=== PATIENT | male | born 1965 | race Caucasian/White ===

== ENCOUNTER 2018-09-12 04:04 | Emergency (ER) | payer BC, SELFPAY ==
[2018-09-12 04:09] VITALS: BP 154/94; PULSE 75; RESP 16; TEMP 36.5; O2SAT 97
[2018-09-12] MEDS: oxyCODONE 5 MG TAB PO ×2 (04:37→06:29)
--- NOTE | 2018-09-12 04:40 | W.ED.GENAD ---
Discharge Plan Disposition Patient Disposition: HOME Condition: Stable Discharge Details Chief Complaint: Orthopedic Clinical Impression: Left knee sprain, Effusion of left knee Primary Care Provider: Jeevan Vidal ED Provider: Abbey Richter Home Meds and New Rx's Prescriptions: New oxycodone 5 mg tablet 5 mg PO Q6H PRN (Reason: pain) Qty: 7 RF: 0 Continued epinephrine 0.3 mg/0.3 mL auto-injector 0.3 mg IM DAILY PRN (Reason: anaphylaxis) RF: 0 meclizine 12.5 mg tablet 12.5 - 25 mg PO Q6H PRN RF: 0 terbinafine HCl 250 mg tablet 250 mg PO DAILY RF: 0 amlodipine 10 mg tablet 10 mg PO DAILY Qty: 90 RF: 3 cetirizine 10 mg tablet 10 mg PO DAILY Qty: 90 RF: 3 losartan 100 mg tablet 100 mg PO DAILY Qty: 90 RF: 3 omeprazole magnesium 20 mg capsule,delayed release(DR/EC) 20 mg PO DAILY Qty: 90 RF: 3 sertraline 50 mg tablet 50 mg PO DAILY Qty: 90 RF: 3 tamsulosin 0.4 mg capsule 0.4 mg PO DAILY Qty: 90 RF: 3 Discharge Instructions Instructions: Knee Sprain (ED) Additional Instructions: Rest, ice, elevate left knee as much as possible. Wear an Teto wrap or knee brace and use crutches for ambulation until you are able to bear weight as tolerated. Call orthopedics today to schedule follow-up appointment for reevaluation. Return immediately to the emergency department any worsening or new concerning symptoms fever, worsening pain, redness or swelling. Referrals: Greg Sierra MD [ [facility] STAFF PHYSICIAN] - Discharge Data Discharge Physician: Abbey Richter Medical Decision Making 53-year-old male presents with left knee pain and swelling for the past 5 days, worse since last night. Denies any known specific injury but states he was fishing and doing squats in the gym recently. Blood pressure mildly hypertensive. Afebrile. There is no evidence of cellulitis to the knee. His left knee does appear warm, tender with flexion past 40 degrees, and has moderate edema to anterior knee. No ligamentous instability. Neurovascularly intact. No calf tenderness. Patient is a daily drinker. Differential diagnosis includes gout, arthritis, sprain. No fever or redness so does not appear c/w septic arthritis. Will obtain a left knee x-ray, and check CBC, ESR, CRP and uric acid level. Patient cannot take any NSAIDs due to anaphylaxis. Will give a dose of oxycodone. 0530 --labs and imaging reviewed. Normal white blood cell count, ESR, uric acid. CRP 3.24. Knee x-ray notes soft tissue swelling and joint effusion suprapatellar and femoral tibial joint compartments. As patient does not have any lab or exam findings consistent with septic arthritis or gout, will do an arthrocentesis for treatment purposes to help with pain and send for fluid analysis. Drained approximately 13 cc of serous fluid which may be been mixed with blood due to proximity to vessels. Patient admitted to some improvement of pain and mobility of knee after knee aspiration. Patient given Teto wrap and crutches and instructed to [id number], rest, ice, elevate. He is instructed to call orthopedics today to schedule follow-up appointment for reevaluation and to return here immediately with any signs of fever, worsening pain, redness or swelling. Medical Records Medical records reviewed: Yes I reviewed the patient's medical records. Imaging Data Radiologic Study: Radiologist's impression: XR Left Knee, 4 or more Views EXAM DATE/TIME: 09/12/2018 4:30 AM FINDINGS: Bones/joints: Bone mineralization is age-appropriate. There is no evidence of fracture. No evidence of dislocation. There are probable joint effusions at the suprapatellar and femoral tibial joint compartments. The joint spaces are adequately preserved; no significant degenerative narrowing and no bony erosion seen. Soft tissues: No radiopaque foreign body present. There is soft tissue swelling present. IMPRESSION: 1. No acute osseous abnormality. 2. Soft tissue swelling. 3. There are probable joint effusions at the suprapatellar and femoral tibial joint compartments. Lab Data Lab results reviewed: Yes I reviewed the patient's lab results. Laboratory Tests Range/Units 09/12/18 09/12/18 09/12/18 04:40 04:40 04:40 WBC (4.4-10.8) k/cumm RBC (4.50-6.00) m/cumm Hgb (13.5-17.5) g/dL Hct (40.0-50.0) % MCV (80-95) fL MCH (27.0-33.0) pg MCHC (32.0-36.0) g/dL RDW (11.8-14.1) % Plt Count (130-400) x1000/uL MPV (8.0-11.0) fL Immature Gran % Neutrophils % Lymphocytes % Monocytes % Eosinophils % Basophils % Absolute Neutrophils (1.2-6.7) k/cumm Absolute Lymphocytes (1.2-3.4) k/cumm Absolute Monocytes (0.11-0.7) k/cumm Absolute Eosinophils (0.0-0.7) k/cumm Absolute Basophils (0.0-0.2) k/cumm ESR (1-20) MM/HR 13 Sodium (136-145) mmol/L Potassium (3.5-5.1) mmol/L Chloride (98-107) mmol/L Carbon Dioxide (21.0-32.0) mmol/L Anion Gap (3-11) mmol/L BUN (7-18) mg/dL Creatinine (0.70-1.30) mg/dL Estimated GFR/1.73 m2 (mL/min/1.73m2) Glucose (70-100) mg/dL Uric Acid (3.5-7.2) mg/dL 4.8 Calcium (8.5-10.1) mg/dL C-Reactive Protein (0.0-0.3) mg/dL 3.24 H Range/Units 09/12/18 09/12/18 04:40 04:40 WBC (4.4-10.8) k/cumm 7.15 RBC (4.50-6.00) m/cumm 4.70 Hgb (13.5-17.5) g/dL 14.6 Hct (40.0-50.0) % 43.7 MCV (80-95) fL 93.0 MCH (27.0-33.0) pg 31.1 MCHC (32.0-36.0) g/dL 33.4 RDW (11.8-14.1) % 13.9 Plt Count (130-400) x1000/uL 259 MPV (8.0-11.0) fL 9.9 Immature Gran % 0.1 Neutrophils % 65.4 Lymphocytes % 22.7 Monocytes % 9.0 Eosinophils % 2.4 Basophils % 0.4 Absolute Neutrophils (1.2-6.7) k/cumm 4.68 Absolute Lymphocytes (1.2-3.4) k/cumm 1.62 Absolute Monocytes (0.11-0.7) k/cumm 0.64 Absolute Eosinophils (0.0-0.7) k/cumm 0.17 Absolute Basophils (0.0-0.2) k/cumm 0.03 ESR (1-20) MM/HR Sodium (136-145) mmol/L 140 Potassium (3.5-5.1) mmol/L 4.0 Chloride (98-107) mmol/L 105 Carbon Dioxide (21.0-32.0) mmol/L 27.0 Anion Gap (3-11) mmol/L 8.0 BUN (7-18) mg/dL 16 Creatinine (0.70-1.30) mg/dL 1.25 Estimated GFR/1.73 m2 (mL/min/1.73m2) >= 60.00 Glucose (70-100) mg/dL 123 H Uric Acid (3.5-7.2) mg/dL Calcium (8.5-10.1) mg/dL 8.6 C-Reactive Protein (0.0-0.3) mg/dL HPI General Mode of arrival: wheelchair. Date/Time Provider Initiated Documentation: 09/12/18 04:18. Limitations to Documentation: no limitations. Information obtained by: patient. HPI Narrative: Patient is a 53-year-old male presents with left knee pain for the past 5 days, worse since last night. Patient states he has been unable to sleep due to the pain. He denies any known specific injury but states he was fishing earlier in the week, and has been doing squats at the gym. He also has a daily alcohol drinker and states he drank a lot last week. He denies any known fever. Related Data Home Medications Medication Instructions Recorded Confirmed epinephrine 0.3 mg/0.3 mL 0.3 mg IM DAILY PRN each 03/19/18 09/12/18 injection, auto-injector meclizine 12.5 mg tablet 12.5 - 25 mg PO Q6H PRN tab 03/19/18 09/12/18 terbinafine HCl 250 mg tablet 250 mg PO DAILY 03/19/18 09/12/18 amlodipine 10 mg tablet 10 mg PO DAILY #90 tab 07/15/18 09/12/18 cetirizine 10 mg tablet 10 mg PO DAILY #90 tab 07/15/18 09/12/18 losartan 100 mg tablet 100 mg PO DAILY #90 tab 07/15/18 09/12/18 omeprazole magnesium 20 mg 20 mg PO DAILY #90 cap 07/15/18 09/12/18 capsule,delayed release sertraline 50 mg tablet 50 mg PO DAILY #90 tab 07/15/18 09/12/18 tamsulosin 0.4 mg capsule 0.4 mg PO DAILY #90 cap 07/15/18 09/12/18 oxycodone 5 mg PO Q6H PRN #7 tab 09/12/18 Previous Rx's Medication Instructions Recorded amlodipine 10 mg tablet 10 mg PO DAILY #90 tab 07/15/18 cetirizine 10 mg tablet 10 mg PO DAILY #90 tab 07/15/18 losartan 100 mg tablet 100 mg PO DAILY #90 tab 07/15/18 omeprazole magnesium 20 mg 20 mg PO DAILY #90 cap 07/15/18 capsule,delayed release sertraline 50 mg tablet 50 mg PO DAILY #90 tab 07/15/18 tamsulosin 0.4 mg capsule 0.4 mg PO DAILY #90 cap 07/15/18 oxycodone 5 mg PO Q6H PRN #7 tab 09/12/18 Allergies Allergy/AdvReac Type Severity Reaction Status Date / Time amoxicillin Allergy Severe Anaphylaxsi Unverified 09/12/18 04:12 s ibuprofen Allergy Severe Anaphylaxsi Unverified 09/12/18 04:12 s naproxen Allergy Severe Anaphylaxsi Unverified 09/12/18 04:12 s Penicillins Allergy Severe Anaphylaxsi Unverified 09/12/18 04:12 s venom-honey bee Allergy Severe Anaphylaxsi Unverified 09/12/18 04:12 s clavulanic acid Allergy Mild RASH Unverified 09/12/18 04:12 morphine AdvReac Unknown Unverified 09/12/18 04:12 General Stated Complaint: Orthopedic CRESCENCIO: 3 Review of Systems Review of Systems All systems reviewed & are unremarkable except as noted in HPI and below Constitutional Reports as per HPI, Denies chills and Denies fever(s) Eyes Denies blurry vision ENT Denies dizziness, Denies sore throat and Denies throat swelling Cardiovascular Denies chest pain and Denies dyspnea Respiratory Denies cough and Denies dyspnea Gastrointestinal Denies abdominal pain, Denies diarrhea and Denies vomiting Genitourinary Denies hematuria and Denies dysuria Musculoskeletal Denies back pain and Denies numbness Integumentary/Breasts Denies lesions and Denies rash Neurologic Denies dizziness, Denies focal weakness and Denies numbness Allergic/Immunologic Denies throat swelling [facility] Medical History Alzheimer's dementia (Chronic) Depression (Chronic) GERD (gastroesophageal reflux disease) (Chronic) HTN (hypertension) (Chronic) Surgical History Colonoscopy - MAC (01/20/17) EGD - IV Sedation (01/24/13) EGD - IV Sedation (06/16/16) Nasal septoplasty (11/05/14) Turbinoplasty, Inferior (Bilateral) (11/05/14) Family History Mother Essential hypertension Depression Father Essential hypertension Personal history of malignant neoplasm Heart disease Sister Essential hypertension Heart disease Grandfather Essential hypertension Hyperlipidemia Grandfather Personal history of malignant neoplasm Hyperlipidemia Grandmother Heart disease Grandmother Heart disease Stroke Sister Essential hypertension Hyperlipidemia Son No problems noted. Daughter No problems noted. Social History household members: spouse number of children: 2 Smoking and Tabacco status: Never alcohol intake: current alcohol intake frequency: 0-2 drinks per day substance use type: marijuana Exam Const General: cooperative, healthy appearing and no acute distress HENMT Head: normal to inspection Mouth: oral mucosae normal Eyes General: appearance normal, both eyes and all related structures Neck Neck: normal visual inspection Resp Effort & Inspection: normal respiratory effort and able to speak in complete sentences Cardio Rate: regular rate Skin General skin exam: no rashes or lesions noted Neuro General: alert, awake and oriented x3 Motor: muscle tone normal throughout Extrem Left lower extremity: hip/thigh Details: normal ROM and knee Details: tenderness Location: of the patella, swelling Location: of the patella, abnormal ROM Details: pain with active ROM Details: with flexion and pain with passive ROM Details: with flexion, knee ligament exam normal, Candy's Test Details: negative medially and laterally and warmth Location: anteriorly; no ecchymosis, no crepitus and no foreign bodies Psych Appearance: grossly normal Affect: normal affect Course Vital Signs Temperature 97.7 F 09/12/18 04:09 Pulse 75 09/12/18 04:09 Respiratory Rate 16 09/12/18 04:09 Blood Pressure 154/94 H 09/12/18 04:09 Pulse Oximetry 97 09/12/18 04:09 Temperature 97.7 F 09/12/18 04:09 Temperature Source Temporal Artery Scan 09/12/18 04:09 Pulse 75 09/12/18 04:09 Respiratory Rate 16 09/12/18 04:09 Respiratory Effort Non-Labored 09/12/18 04:14 Blood Pressure 154/94 H 09/12/18 04:09 Blood Pressure Position Supine 09/12/18 04:09 Pulse Oximetry 97 09/12/18 04:09 Oxygen Delivery Method Room Air 09/12/18 04:09 Oxygen Flow Rate 0 09/12/18 04:09 Pain Level 8 09/12/18 04:37
[2018-09-12 04:51] LABS: Abs Immature Grans 0.01 k/cumm (0.0-0.09); Absolute Basophil Count 0.03 k/cumm (0.0-0.2); Absolute Eosinophil Count 0.17 k/cumm (0.0-0.7); Absolute Lymphocyte Count 1.62 k/cumm (1.2-3.4); Absolute Monocyte Count 0.64 k/cumm (0.11-0.7); Absolute Neutrophil Count 4.68 k/cumm (1.2-6.7); Basophils % 0.4; Eosinophils % 2.4; HCT 43.7 % (40.0-50.0); HGB 14.6 g/dL (13.5-17.5); Immature Grans % 0.1; Lymphocytes % 22.7; Mean Corp. HGB Concentration 33.4 g/dL (32.0-36.0); Mean Corpuscular Hemoglobin 31.1 pg (27.0-33.0); Mean Platelet Volume 9.9 fL (8.0-11.0); Neutrophils % 65.4; Platelet Count 259 x1000/uL (130-400); RBC Distribution Width 13.9 % (11.8-14.1); White Blood Cell Count 7.15 k/cumm (4.4-10.8)
[2018-09-12 04:59] LABS: C-Reactive Protein 3.24 mg/dL (0.0-0.3)
[2018-09-12 05:00] LABS: Uric Acid 4.8 mg/dL (3.5-7.2)
[2018-09-12 05:06] LABS: BUN 16 mg/dL (7-18); CREATININE 1.25 mg/dL (0.70-1.30); Calcium 8.6 mg/dL (8.5-10.1); Chloride 105 mmol/L (98-107); Glucose 123 mg/dL (70-100); Sodium 140 mmol/L (136-145)
--- NOTE | 2018-09-12 05:15 | DI.RAD_ITS ---
SYMPTOMS/DIAGNOSIS: LEFT KNEE SWELLING, ? EFFUSION/FRACTURE LEFT KNEE: A joint effusion is seen. No fracture is visible. There is anterior soft tissue swelling. The joint spaces are well maintained. IMPRESSION: Anterior soft tissue swelling and joint effusion.
[2018-09-12 05:21] LABS: ESR 13 MM/HR (1-20)
--- NOTE | 2018-09-12 05:35 | DI.VRAD_ITS ---
EXAM: XR Left Knee, 4 or more Views EXAM DATE/TIME: 09/12/2018 4:30 AM CLINICAL HISTORY: 53 years old, male; Pain; Knee; Left; Patient HX: Knee pain, unable to bend or lift knee. No specific trauma. Injured this knee before but no prior surgery TECHNIQUE: XR Left knee 4 or more views. COMPARISON: No relevant prior studies available. FINDINGS: Bones/joints: Bone mineralization is age-appropriate. There is no evidence of fracture. No evidence of dislocation. There are probable joint effusions at the suprapatellar and femoral tibial joint compartments. The joint spaces are adequately preserved; no significant degenerative narrowing and no bony erosion seen. Soft tissues: No radiopaque foreign body present. There is soft tissue swelling present. IMPRESSION: 1. No acute osseous abnormality. 2. Soft tissue swelling. 3. There are probable joint effusions at the suprapatellar and femoral tibial joint compartments. Dictated and Authenticated by: Logan Keller MD. Ordering:ADARSH Potter MD
[2018-09-12 06:49] VITALS: PULSE 70; RESP 16; TEMP 36.5; O2SAT 97
== END 2018-09-12 06:40 | disposition home or self-care (01) ==
PROVIDERS: Emergency Provider Physician Assistant; PCP Family Medicine
DX: S83.92XA Sprain of unspecified site of left knee, initial encounter (principal); M25.462 Effusion, left knee; X58.XXXA Exposure to other specified factors, initial encounter
CPT/HCPCS: 36415; 80048; 85652; 99284; 73564; 84550; 85025; 86140; 87070; 87205; E0114

== ENCOUNTER 2018-09-28 15:21 | Outpatient (CLI) | payer BC, SELFPAY ==
--- NOTE | 2018-09-28 14:49 | DI.RAD_ITS ---
SYMPTOMS/DIAGNOSIS: RIGHT HIP PAIN RIGHT HIP AND PELVIS: Comparison CT scan is 09/15/16. There is again seen marked narrowing of the superior joint space. There is mild subchondral sclerosis in the acetabulum. Mild spurring is seen at the femoral head. Posttraumatic changes are seen in the lesser trochanter. No acute fracture or dislocation is seen. IMPRESSION: Moderate degenerative changes of the right hip.
== END 2018-09-28 15:41 ==
PROVIDERS: PCP Family Medicine; Visit Provider Physician Assistant
DX: M25.551 Pain in right hip (principal); M16.11 Unilateral primary osteoarthritis, right hip
CPT/HCPCS: 73502

== ENCOUNTER 2018-10-06 00:26 | Outpatient (CLI) | payer BC, SELFPAY ==
--- NOTE | 2018-10-06 07:19 | DI.RAD_ITS ---
SYMPTOMS/DIAGNOSIS: PRIMARY OA RT HIP, M16.11 RIGHT HIP INJECTION: Fluoroscopy Time: 4 sec Under fluoroscopic guidance, Dr. Sierra positioned a needle in the right hip and carried out a joint injection. Please see the procedure report for further information.
[2018-10-06] MEDS: Bupivacaine 0.5% Pres-Free 10 ML VIAL 6 ML IJ (08:28)
[2018-10-06] MEDS: Omnipaque 300 MG/ML 10 ML BTL IJ (08:28)
[2018-10-06] MEDS: methylPREDNISolone ACETATE 80 MG/ML VIAL IM (08:29)
--- NOTE | 2018-10-06 09:49 | W.PROCNOTE ---
Date of service: 10/06/18 Time of Service: 09:49 Procedure Note Date of procedure: 10/06/18 Procedure: Right Hip Injection with Fluoroscopic Guidance Surgeon/Proceduralist/Physician: Greg Sierra Procedure Diagnosis: Right Hip Osteoarthritis Procedure Indications: Gopi has had persistent pain of the RIGHT hip and groin. Noninvasive measures have been tried. To serve as both diagnostic and therapeutic, an injection under fluoroscopy was recommended. I had discussed the risks of the procedure and the patient elected to proceed. Procedure Description: Gopi was greeted in the flouroscopy room. The correct side was identified and the consent was reviewed with the patient and signed. The patient was then placed in the supine position on the fluoroscopy table. The RIGHT hip was then prepped with Chloraprep. The anterolateral injection starting point was identiifed by bony landmarks and fluoroscopy. The skin and soft tissue in the tract of the injection was anesthetized with 1% Lidocaine. A spinal needle was then inserted deep into the hip joint at the level of the lateral femoral neck under fluoroscopic guidance. A small amount of Omnipaque solution was injected to confirm intraarticular placement. Once confirmed, the hip was injected with 6cc of 0.5% Bupivicaine and 80mg of Depo-Medrol. A bandaid was placed on the injection site. The patient tolerated the procedure well and noted improvement in pre-injection pain.
== END 2018-10-06 00:46 ==
PROVIDERS: PCP Family Medicine; Visit Provider Student in an Organized Health Care Education/Training Program
DX: M25.551 Pain in right hip (principal); M16.11 Unilateral primary osteoarthritis, right hip
CPT/HCPCS: 20610; 77002; J1040

== ENCOUNTER 2019-02-16 01:19 | Outpatient (CLI) | payer BC, SELFPAY ==
--- NOTE | 2019-02-16 07:24 | DI.RAD_ITS ---
SYMPTOM/DIAGNOSIS: RT HIP INJECTIO, PRIMARY OA RT HIP, M16.11 FLUOROSCOPY: Fluoroscopy Time: 8.3 seconds Fluoroscopy was utilized by Dr. Sierra during right hip joint injection. Hard copy shows intra-articular injection of the right hip joint.
--- NOTE | 2019-02-16 10:23 | W.PROCNOTE ---
Date of service: 02/16/19 Time of Service: 10:23 Procedure Note Date of procedure: 02/16/19 Procedure: Right Hip Injection with Fluoroscopic Guidance Surgeon/Proceduralist/Physician: Greg Sierra Procedure Diagnosis: Right Hip Osteoarthritis Procedure Indications: Gopi has had persistent pain of the RIGHT hip and groin. Noninvasive measures have been tried. To serve as both diagnostic and therapeutic, an injection under fluoroscopy was recommended. I had discussed the risks of the procedure and the patient elected to proceed. Procedure Description: Gopi was greeted in the flouroscopy room. The correct side was identified and the consent was reviewed with the patient and signed. The patient was then placed in the supine position on the fluoroscopy table. The RIGHT hip was then prepped with Chloraprep. The anterolateral injection starting point was identiifed by bony landmarks and fluoroscopy. The skin and soft tissue in the tract of the injection was anesthetized with 1% Lidocaine. A spinal needle was then inserted deep into the hip joint at the level of the lateral femoral neck under fluoroscopic guidance. A small amount of Omnipaque solution was injected to confirm intraarticular placement. Once confirmed, the hip was injected with 6cc of 0.5% Bupivicaine and 80mg of Depo-Medrol. A bandaid was placed on the injection site. The patient tolerated the procedure well and noted improvement in pre-injection pain.
[2019-02-16] MEDS: Bupivacaine 0.5% Pres-Free 10 ML VIAL 6 ML IJ (10:30)
[2019-02-16] MEDS: methylPREDNISolone ACETATE 80 MG/ML VIAL IM (10:31)
== END 2019-02-16 01:39 ==
PROVIDERS: PCP Family Medicine; Visit Provider Student in an Organized Health Care Education/Training Program
DX: M16.11 Unilateral primary osteoarthritis, right hip (principal); M25.551 Pain in right hip
CPT/HCPCS: 20610; 77002; J1040

== ENCOUNTER 2019-04-18 12:56 | Outpatient (CLI) | payer BC, SELFPAY ==
--- NOTE | 2019-04-18 14:04 | W.PREOPHP ---
Date of service: 04/18/19 Assessment and Plan Assessment and plan (1) Primary osteoarthritis of right hip: Status: Chronic Assessment and plan: Right total hip replacement. Details of surgery were discussed with patient as well as risks and pertinent anatomy. All questions were answered. History of Present Illness History of Present Illness Chief Complaint: Right hip pain Narrative: Gopi is a 53-year-old male who comes in today for a preop H&P for a right total hip replacement. He has been dealing with right hip pain for quite some time, does not very good job of compensating for pain. He states that he has trouble going up stairs especially, but also walking on uneven ground. He states his pain is very predictable with every step that he takes going upstairs. He has had x-rays done which show severe arthritis of the right hip with a complete loss of joint space and bone spurs throughout. He has had injections performed in his right hip which gave him almost complete relief of his pain, but they have only lasted a couple of months. His most recent injection was 2 months ago, and just now his pain is starting to return. Dr. Sierra does offer a right total hip replacement, and at this point Gopi is ready to proceed. Pertinent Surgical Information Gopi had an issue with anesthesia previously because of his early onset dementia. He woke up with severe confusion and memory loss after recent anesthesia. He would like to move forward with a spinal and light sedation in order to try to prevent this at this time. Gopi has anaphylactic reaction to NSAIDs, so may not be a good candidate for aspirin as DVT prevention. He has an anaphylactic reaction to penicillin as well, but he will receive Ancef with a test dose in the OR. Patient denies history of CVA, VA, angina, asthma, COPD, renal or liver disorders, hepatitis, bleeding disorders, diabetes, immune or thyroid disorders. No complications from anesthesia. Review of Systems Constitutional Constitutional: Denies fever(s) ENT Ears, Nose, Mouth, and Throat: Denies dizziness and Denies sore throat Cardiovascular Cardiovascular: Denies chest pain, Denies palpitations and Denies dyspnea Respiratory Respiratory: Denies cough and Denies dyspnea Gastrointestinal Gastrointestinal: Reports abdominal pain (Infrequently usually after eating or drinking alcohol in RUQ), Denies melena, Denies hematochezia, Denies diarrhea, Denies nausea and Denies vomiting Genitourinary Genitourinary: Denies hematuria and Denies dysuria Neurologic Neurologic: Denies dizziness Endocrine Endocrine: Denies palpitations [facility] Medical History (Updated 04/18/19 @ 14:17 by POLLO Vang) Alzheimer's dementia (Chronic) Depression (Chronic) GERD (gastroesophageal reflux disease) (Chronic) History of anesthesia complications (Acute) Memory loss, combative when waking up during colonoscopy HTN (hypertension) (Chronic) Surgical History Colonoscopy - MAC (01/20/17) EGD - IV Sedation (01/24/13) EGD - IV Sedation (06/16/16) Nasal septoplasty (11/05/14) Dr. Milton @ [facility] Turbinoplasty, Inferior (Bilateral) (11/05/14) Dr. Milton @ [facility] Social History (Updated 04/18/19 @ 14:08 by POLLO Vang) Smoking/Tobacco Use Status: Never Smokeless tobacco user: chewing tobacco Quit status: has quit before Alcohol Intake: current Alcohol Intake frequency: 3 or more drinks per day Alcohol type: beer Details: Previously 4-5 daily. Now no during the week, but has about 12 on weekends Drug use: Daily Substance use type: marijuana Household members: spouse Number of Children: 2 Do you feel safe in your relationship?: Yes Meds Home Medications and Allergies Home Medications Medication Instructions Recorded Confirmed Type epinephrine 0.3 mg/0.3 mL 0.3 mg IM DAILY PRN each 03/19/18 04/18/19 History injection, auto-injector meclizine 12.5 mg tablet 12.5 - 25 mg PO Q6H PRN tab 03/19/18 04/18/19 History amlodipine 10 mg tablet 10 mg PO DAILY #90 tab 07/15/18 04/18/19 Rx cetirizine 10 mg tablet 10 mg PO DAILY #90 tab 07/15/18 04/18/19 Rx losartan 100 mg tablet 100 mg PO DAILY #90 tab 07/15/18 04/18/19 Rx omeprazole magnesium 20 mg 20 mg PO DAILY #90 cap 07/15/18 04/18/19 Rx capsule,delayed release sertraline 50 mg tablet 50 mg PO DAILY #90 tab 07/15/18 04/18/19 Rx tamsulosin 0.4 mg capsule 0.4 mg PO DAILY #90 cap 07/15/18 04/18/19 Rx marijuana INHALATION 02/09/19 History Allergies Allergy/AdvReac Type Severity Reaction Status Date / Time amoxicillin Allergy Severe Anaphylaxsi Verified 02/09/19 14:06 s ibuprofen Allergy Severe Anaphylaxsi Verified 02/09/19 14:06 s naproxen Allergy Severe Anaphylaxsi Verified 02/09/19 14:06 s Penicillins Allergy Severe Anaphylaxsi Verified 02/09/19 14:06 s venom-honey bee Allergy Severe Anaphylaxsi Verified 02/09/19 14:06 s clavulanic acid Allergy Mild RASH Verified 02/09/19 14:06 aspirin AdvReac Intermediate Skin Rash Verified 04/18/19 13:14 mold AdvReac Intermediate Skin Rash Verified 04/18/19 13:14 morphine AdvReac Unknown Verified 02/09/19 14:06 spiders AdvReac Severe hives, Uncoded 04/18/19 13:14 difficulty breathing Exam HENMT Head: normocephalic and atraumatic General nose exam: no nasal discharge Throat: uvula midline and no uvular edema Other: soft palate rises symmetrically, no erythema Eyes Conjunctivae: conjunctivae normal Sclera: sclerae normal Pupils: PERRL Resp Effort & Inspection: normal respiratory effort Auscultation: clear to auscultation bilaterally and no wheezes Cardio Rate: regular rate Rhythm: regular rhythm Heart Sounds: S1 normal, S2 normal and no murmurs GI Palpation: soft, no hepatosplenomegaly and nontender Auscultation: normal bowel sounds
== END 2019-04-18 13:16 ==
PROVIDERS: PCP Family Medicine; Visit Provider Student in an Organized Health Care Education/Training Program
DX: M16.11 Unilateral primary osteoarthritis, right hip (principal); Z01.818 Encounter for other preprocedural examination
CPT/HCPCS: NC

== ENCOUNTER 2019-04-18 14:06 | Outpatient (CLI) | payer BC, SELFPAY ==
[2019-04-18 14:40] LABS: HCT 44.5 % (40.0-50.0); Mean Corp. HGB Concentration 33.7 g/dL (32.0-36.0); Mean Corpuscular Hemoglobin 31.1 pg (27.0-33.0); Mean Corpuscular Volume 92.1 fL (80-95); Mean Platelet Volume 10.1 fL (8.0-11.0); Platelet Count 312 x1000/uL (130-400); RBC 4.83 m/cumm (4.50-6.00); RBC Distribution Width 13.5 % (11.8-14.1); White Blood Cell Count 6.76 k/cumm (4.4-10.8)
[2019-04-18 15:29] LABS: Anion Gap 7.9 mmol/L (3-11); BUN 13 mg/dL (7-18); CO2 28.1 mmol/L (21.0-32.0); CREATININE 1.26 mg/dL (0.70-1.30); Calcium 9.2 mg/dL (8.5-10.1); Chloride 104 mmol/L (98-107); Glucose 87 mg/dL (70-100); Potassium 4.9 mmol/L (3.5-5.1); Sodium 140 mmol/L (136-145)
== END 2019-04-18 14:26 ==
PROVIDERS: PCP Family Medicine; Visit Provider Student in an Organized Health Care Education/Training Program
DX: M16.11 Unilateral primary osteoarthritis, right hip (principal); M25.551 Pain in right hip; I10 Essential (primary) hypertension; K21.9 Gastro-esophageal reflux disease without esophagitis; G47.33 Obstructive sleep apnea (adult) (pediatric); Z01.818 Encounter for other preprocedural examination; Z01.812 Encounter for preprocedural laboratory examination
CPT/HCPCS: 36415; 80048; 85027; 86850; 86900; 86901

== ENCOUNTER 2019-04-25 06:00 | Inpatient (IN) | payer BC, SELFPAY ==
--- NOTE | 2019-04-18 16:28 | CMPROGNOTE_ITS ---
- If Service Date Differs Date of service: 04/18/19 Time of Service: 16:28 Care Management Progress Note CM met with Gopi and his , Leatha at a pre-op appointment. Gopi is scheduled to have a right hip replacement on 04/25/[address] Sierra. Gopi and his live in [facility]. They have three kids and three grandchildren who all live fairly close. He is employed at the [employer]. He lives in a two story home, but he has a bedroom and bathroom on the first level, with only two steps to get into the house. He has a FWW, raised toilet seat, and grab bars in his bathroom. His , Leatha, will transport him to and from the hospital via private vehicle. Gopi is independent at baseline. CM provided copies of the [place] AD to both Gopi and Leatha, at their request. Gopi reported that he has early onset dementia, so it is important that his goals of care and wishes are known. CM advised that he can bring the AD in to the hospital or doctor's office to have his signature witnessed. CM will continue to follow.
[2019-04-25] VITALS (15 sets, daily range): BP systolic 109–148; BP diastolic 65–98; PULSE 56–100; RESP 13–20; TEMP 36.4–37.7; O2SAT 94–100
[2019-04-25] MEDS: Lactated Ringers 1,000 ML 80 ML IV ×4 (06:45→23:40)
[2019-04-25] MEDS: Acetaminophen 500 MG TAB 1000 MG PO ×3 (07:07→20:24)
--- NOTE | 2019-04-25 07:09 | DI.RAD_ITS ---
EXAM: XR HIP RT IN OR CLINICAL HISTORY: Primary osteoarthritis of right hip TECHNIQUE: 2D digital imaging was performed. COMPARISON: No exams were available for comparison FINDINGS: C-arm fluoroscopy was utilized by Dr. Sierra during placement of right hip prosthesis in patient wi th proximal femoral fracture. Hard copy shows the acetabular and femoral components in good position . IMPRESSION: Normal chest
[2019-04-25] MEDS: ceFAZolin 2,000 MG in Normal Saline 100 ML 200 MG IVPB (07:32)
[2019-04-25] MEDS: Bupivacaine 0.25% Pres-Free 30 ML VIAL (09:50)
[2019-04-25] MEDS: Normal Saline 50 ML (09:50)
[2019-04-25] MEDS: fentaNYL 100 MCG/2 ML VIAL IVP ×2 (11:25→11:45)
[2019-04-25] MEDS: HYDROmorphone 2 MG/ML VIAL 0.5 MG IVP ×3 (13:15→18:00)
[2019-04-25] MEDS: Normal Saline Flush 10 ML SYR IV ×3 (13:18→18:01)
[2019-04-25] MEDS: oxyCODONE 5 MG TAB PO ×2 (13:28→17:21)
[2019-04-25] MEDS: Cyclobenzaprine 10 MG TAB PO (15:10)
[2019-04-25] MEDS: Ondansetron 4 MG/2 ML VIAL IVP ×2 (16:12→23:03)
--- NOTE | 2019-04-25 17:04 | IN_ITS ---
Date of service: 04/25/19 Time of Service: 13:42 PT Notes Inpatient Physical Therapy Evaluation Date: 04/25/2019 Referring Doctor: Greg Sierra MD PT Orders: PT CONSULT: s/p R Anterior RAVINDER Precautions: Fall. Standard. WBAT on right LE Patient Profile/Admitting Diagnosis: Patient is a 53 year old male s/p R RAVINDER anterior approach POD 0 due to primary osteoarthritis. PMHX: Medical History (Updated 04/18/19 @ 14:17 by POLLO Vang) Alzheimer's dementia (Chronic) Depression (Chronic) GERD (gastroesophageal reflux disease) (Chronic) History of anesthesia complications (Acute) Memory loss, combative when waking up during colonoscopy HTN (hypertension) (Chronic) Surgical History Colonoscopy - MAC (01/20/17) EGD - IV Sedation (01/24/13) EGD - IV Sedation (06/16/16) Nasal septoplasty (11/05/14) Dr. Milton @ [facility] Turbinoplasty, Inferior (Bilateral) (11/05/14) Dr. Milton @ [facility] Social History/Home Situation: Patient lives with his in a 2-story home with 2 steps steps with bilateral rails. They have flight to the second floor where their bedroom is, rail on the left going up. Patient is independent with all aspects of ADLs without the need for an assistive ambulatory device nor adaptive equipment prior to admission. 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 and is hoping to go back to work as soon as he is able. Equipment Owned/DME: F[facility] Subjective: Patient reports severe pain and nausea. He says he has not eaten anything yet, and believes the medications are what is causing the nausea. He is agreeable to PT evaluation. Objective: General Observation: Patient is seen on the commode with disconnected antithromboembolic devices bilaterally, and an IV in the L UE, and delgado catheter. Mental Status: Alert and oriented x 4 Pain: 9/10 pain exacerbated by movement ROM: Right Lower Extremity: Hip flexion WFL. Hip abduction WFL. Knee flexion WFL. Ankle dorsiflexion WFL. Ankle plantarflexion WFL. Left Lower Extremity: Hip flexion WFL. Hip abduction WFL. Knee flexion WFL. Ankle dorsiflexion WFL. Ankle plantarflexion WFL. Strength: Right Lower Extremity: NT due to pain Left Lower Extremity: Hip flexors 4/5. Hip abductors 5/5. Knee flexors 5/5. Knee extensors 5/5. Ankle dorsiflexors 4/5. Ankle plantarflexors 5/5. Sensation: Intact as to pain and pressure on bilateral lower extremities. Bed Mobility/Transfers: Rolling: Independent Supine to sit: Independent Sit to supine: Independent Sit to stand: SBA Stand to sit: SBA Bed to chair: CGA Chair to bed: CGA Gait: Patient ambulated 5? with FWW and CGA, using a step-to gait pattern transferring from bedside commode back to bed. He exhibited decreased step length, janes, and decreased gait velocity. Balance: Static Sitting: Normal Dynamic Sitting: Normal Static Standing: Fair Dynamic Standing: Fair Special Tests: Mobility Limitations Standardized Measure [facility] AM-PAC 6 clicks Basic Mobility Inpatient Short Form: Raw Score: 18 CMS Score: 47% Informed Consent/Education: Patient instructed in purpose of PT consult and plan of care. Assessment: Patient is a 53 year old male s/p R RAVINDER anterior approach POD 0. He reported severe pain in the R LE, as well as nausea. He reported he had not eaten since the previous evening, and believed the medications he had on an empty stomach were contributing. He successfully transferred to a bedside commode and back to his bed with CGA, and FWW. He has the love and support of his , and appears to be a motivated individual. His prognosis is good. presents with clinical signs and symptoms consistent with current/admitting diagnoses that have resulted to mobility limitations, gait instability, generalized weakness, and impairment of motor control as demonstrated by the f ollowing impairment level findings: 1. Decreased strength to B LE major muscle groups 2. Impaired sitting/standing balance 3. Impaired activity tolerance 4. Limitation of joint range of motion in left lower extremity Impairments are contributing to the following functional limitations: 1. Dependent bed mobility skills 2. Increased dependence with transfers 3. Inability to safely ambulate without assistive device and physical assistance 4. Increase completion time for mobility ADL performance 5. Increased fall risk 6. Inability to negotiate steps alone safely Patient is assessed as a moderate complexity based on the following: History: [] Examination: Demonstrable impairment in strength, balance, and range of motion with underlying impairments and functional limitations as documented above Presentation: Evolving Decision Making: Moderate complexity Goals: Goals X1 week 1. Supine-Sit independent 2. Sit-Supine independent 3. Sit-Stand independent 4. Stand-Sit independent 5. Bed-Chair independent 6. Chair-Bed independent 7. Independent gait on level surface with use of least restrictive device for at least 300 feet without report of pain nor dyspnea 8. Independent stair negotiation while holding onto bilateral rails for at least 15 steps without report of pain nor dyspnea 9. Independent with home exercise program 10. Good static and dynamic standing balance/tolerance Plan of Care/Treatment Plan: 1-2x/day, 7 days/week x 1 week. Plan of care has been reviewed with the VENDING MACHINE ASSEMBLER providing the service under Physical Therapy direction. Initiate Physical Therapy intervention for strengthening, bed mobility, transfers, gait, stairs, balance training, use of assistive device. DISCHARGE RECOMMENDATIONS: Patient is to be discharged under the care of his after all of the above goals are met and he is medically stable. May benefit from skilled physical therapy services according to orthopedic surgeon's timeline recommendations. Patient will be educated and trained on home exercise program per TKA exercise protocol in preparation for outpatient physical therapy services. TREATMENT CODE/TIME: 36634 x 15 minutes beginning at 13:42 PM. Thank you very much for this referral. Aureliano Cobian SPT [facility] With a supervision of: Brittney Luna PT, DPT, CLT [facility]
[2019-04-25] MEDS: HYDROmorphone 2 MG/ML VIAL 1 MG IVP ×4 (20:24→23:40)
[2019-04-25] MEDS: Rivaroxaban 10 MG TABLET PO (22:07)
[2019-04-25] MEDS: Sertraline 50 MG TAB PO (22:07)
[2019-04-25] MEDS: amLODIPine 10 MG TAB PO (22:08)
[2019-04-25] MEDS: Tamsulosin 0.4 MG CAPCR PO (22:08)
--- NOTE | 2019-04-25 22:16 | W.PM.OP ---
Date of service: 04/25/19 Time of Service: 10:16 Operative Note Operative Note DATE OF PROCEDURE: 04/25/19 PRE-OP DIAGNOSIS: Right Hip Osteoarthritis POST-OP DIAGNOSIS: same PROCEDURE: Right Anterior Total Hip Arthroplasty SURGEON: Greg Sierra EXCEPTIONAL CHILDREN TEACHER: Kushal Asher ANESTHESIA: spinal ESTIMATED BLOOD LOSS: 400 PATHOLOGY: none sent COMPLICATIONS: None Patient was transported to: PACU Patient's condition: stable Implants: 1. Depuy [place] Acetabular Component, 54mm 2. Depuy Acetabular Liner, [id number] 3. Depuy Actis High Offset Femoral Stem, Size 4 4. Depuy Altrx Ceramic Femoral Head, Size 36+1.5mm Indications: I have seen Gopi in clinic for symptoms of hip arthritis, confirmed with radiographic findings. Gopi has exhausted nonoperative methods and was having significant limitations in daily function and desired better function and less pain. I discussed the technical details of a hip replacement. I explained the risks of the procedure to include, but not limited to, bleeding, infection, pain, stiffness, fracture, damage to nerves and vessels, damage to muscles and tendons, loosening, instability, leg length inequality, need for repeat procedure, blood clot and cardiopulmonary demise. Despite these risks, Gopi elected to proceed. Findings: There was significant signs of arthritis throughout the hip. The entire superior portion of the femoral head was eburnated. There was the deformity of the lesser trochanter but it did not have to be manipulated. Procedure Description: Gopi was greeted in the preoperative holding area where the correct side was identified and marked. The consent was reviewed with the patient and signed. The history and physical was updated. All questions were answered. Gopi was taken back to the operating room. A spinal anesthestic was then administered. The patient was placed into the supine position on the operating room table. The patient was then positioned onto the ARCH table. Both feet were wrapped with [place] cotton wrap along with Coban. The feet were placed in specialized boots for the ARCH table, well seated within the boot and secured. SCDs were applied. The patient was then slid down onto a peroneal post and the nonoperative leg was secured in a leg mendoza attached to the table. The operative side was placed into the ARCH table attachment and bed height and positioning was secured. A preoperative AP pelvis was obtained to serve as a reference for determining leg lengths. Prophylactic antibiotics in the form of Cefazolin were administered. 1g of Tranxemic Acid was given intravenously within 30 minutes of incision. The right leg was then prepped with Chloraprep and draped in a standard fashion. A second prep with Chloraprep was performed prior to placement of a shower-curtain type drape with Iodine impregnated skin protection. A timeout to confirm correct identity, side and site, procedure, allergies, anesthesia, and medical concerns was performed. An obliquely oriented incision was made starting lateral to the ASIS and running distal over the Tensor Fascia Brandi (TFL) muscle belly toward the fibular head, approximately 10cm. The skin and soft tissue was dissected sharply, through Nav?s fascia, and to the fascia of the TFL. With the fascia and superior border of the IT band identified, the fascia was incised with a new knife just above any perforators from the IT band. The TFL muscle belly was bluntly dissected away from the fascia and moved laterally. The fat between TFL and rectus was identified to ensure the dissection was not within the TFL. Blunt dissection created space between abductors and the capsule and retractor was placed over the lateral femoral neck. The fibers of the rectus femoris tendon were identified and these were freed from the anterior capsule. A second cobra retractor was placed around the medial femoral neck. The TFL was further retracted laterally to show the deep fascia. Careful dissection through this layer identified three main crossing vessels of the lateral femoral circumflex. These were cauterized in multiple locations and then cut without any noticeable bleeding. The TFL was further released bluntly from the deep fascia to expose anterior hip capsule and fat The Victor Manuel orthopaedic retractor was then placed beneath the TFL and against sartorius and medial soft tissues to protect and retract the soft tissues. A T-capsulotomy was then performed starting at the superior lateral acetabulum and moving distally to the intertrochanteric ridge. These capsular flaps were tagged with a No. 1 Ethibond and elevated from within. The capsular flaps were released to the shoulder of the lateral neck and to the lesser trochanter to give excellent visualization of the proximal femur. The lesser trochanter was notably deformed as seen on x-ray. The inner portion of the lesser was released. A neck osteotomy was performed using an oscillating saw based on preoperative templates. This cut started in the shoulder and of the lateral neck and exited medially. The saw was at all times directed medially to avoid injury to the greater trochanter. 6cm of traction was applied to the leg and the osteotomy opened. The femoral head was removed with a corkscrew, making sure to protect the TFL on its exit. This was measured on the back table to determing the starting reamer size. Portions of the rectus obscuring visualization were minimally elevated off the superior acetabulum. An anterior retractor was placed over the anterior wall between capsule and labrum and attached to the Gripper retraction system. A posterior retractor was placed similarly. This provided excellent visualization. The contents of the cotyloid fossa were removed with electrocautery and the labrum was removed with a knife. There was a notable floor osteophyte. There was significant chondromalacia of the superior femoral head. Acetabular reaming began with a 48mm reamer. This first reaming was directed anterior to posterior and medial to get down to the true floor. This was inspected and reamed until the true floor was reached. I then reamed sequentially up to a 54mm reamer where good fit was obtained. The larger reamers were oriented based on anatomical reference of the anterior and lateral cat to ensure proper abduction and anteversion. Positioning and size was confirmed with the fluoroscopy. A 54mm Depuy [place] acetabular component was selected. The deep tissues were irrigated. The acetabular component was then impacted in a position of about 40-45 degrees of abduction and 15-20 degrees of anteversion, using the patient?s anatomy as the ultimate landmark. Fluoroscopy was used to confirm this. There was excellent smooth plater of the acetabular component and the inserting handle was removed. A primary acetabular screw was placed into the ilium by drilling through one of the holes in the acetabular component. This was measured and an approrpriately sized screw was placed with excellent purchase. It was checked not to be proud. A second screw was placed in a similar fashion. The acetabular liner, Depuy [id number] polyethylene liner, was inserted and lined up with the tines of the acetabular component. There was no soft tissue interposition. The liner was then impacted into position and confirmed to be well-seated. A portion of the frandy-articular cocktail was then injected around the acetabulum into the capsule and periosteum. This cocktail consisted of 50cc of 0.25% Bupivicaine and 20cc of Exparel, expanded to a total of 120cc. Traction was released from the femur. The leg was rotated to 120 degrees. Any remaining medial capsule was released until the lesser trochanter was easily palpable. A Day retractor was placed medially. The lateral capsule was further released into the shoulder to allow access to the greater trochanter. A Day retractor was placed over the greater trochanter which allowed the trochanter to flip in front of the capsule for excellent exposure. The leg was brought down into maximal extension and 20 degrees of adduction while ensuring there was no impingement on the acetabulum. Any remnant capsule within the trochanter was released. Piriformis and obturator externis were identified and protected. There was excellent access to the proximal femur. The lateral neck remnant was removed with a rongeur. A blunt canal probe was used to identify the canal and trajectory for later broaching. A box osteotome initiated the broach course. A small curved rasp and a curved curette were used to work laterally. Broaching then began with a size 0 Actisl broach. This was inserted manually around the trochanter and into the canal before mallet blows. The broach was seateda few millimeters below the cut level based on the neck cut and the preoperative template. Sequential broaching was continued until a tight fit was obtained with good rotational control of the femur. A trial high offset neck was inserted along with a 1.5 trial head. The leg was brought out of extension and adduction and then reduced with traction and internal rotation. The leg was stable anteriorly in a position of 30 degrees of extension and 90 degrees of external rotation. Fluoroscopy was used to ensure there was no fracture and the stem was seated well. Leg lengths were checked with an AP hip and reference points. Once content with the desired offset and leg lengths, the leg was brought back into extension, external rotation and adduction. The periosteum and surrounding tissue was injected with remaining portion of the frandy-articular cocktail. The proximal femur was irrigated as well as the deep tissues. The Depuy Actisl high offset collared stem, size 11, was then manually inserted into the proximal femur making sure to control rotation. It was then malleted into position with light blows, giving breaks to allow bone expansion and decrease risk of fracture. The selected Depuy Altrx Ceramic Head, size 36+1.5mm, was then placed onto the clean and dry trunnion and secured with impaction onto the tapered fit. The leg was brought back out of extension and adduction and reduced with traction and internal rotation. Stability was confirmed with no shuck at 90 degrees of external rotation and 30 degrees of extension. No impingement through range of motion arc. Final x-ray images were obtained with fluoroscopy to confirm adequate positioning and no intraoperative fracture. The deep tissues were thoroughly irrigated with a pulse lavage. The second dose of TXA 1g was administered intravenously.The capsule was then reapproximated with the previously placed Ethibond sutures. The TFL fascia was finally closed with a No. 2 Stratafix, barbed suture. Deep tissues were then reapproximated with 0 Vicryl and a running 2-0 Vicryl. The skin was closed with a running 4-0 Monocryl in a subcuticular fashion. This was reinforced with skin glue. A Mepilex silver dressing was applied. At the end of the case, all counts were correct. Gopi was transferred to the hospital bed without difficulty and suffering no apparent complication. Davey has a good prognosis. Physical therapy will start today and without restrictions, weight-bearing as tolerated. Rivaroxaban will be used for DVT prophylaxis.
[2019-04-26] VITALS (7 sets, daily range): BP systolic 117–151; BP diastolic 69–85; PULSE 68–90; RESP 13–22; TEMP 35.9–37.4; O2SAT 92–100
[2019-04-26] MEDS: HYDROmorphone 2 MG/ML VIAL 1 MG IVP ×4 (01:33→06:13)
[2019-04-26] MEDS: Ondansetron 4 MG/2 ML VIAL IVP ×3 (06:33→16:20)
[2019-04-26] MEDS: diazePAM 5 MG TAB PO (06:34)
--- NOTE | 2019-04-26 06:51 | NUR.NOTE ---
Nursing Note: 0635H Patient woke up feeling anxious with a pressure in his chest. Vital signs taken BP 114/71, 99%, HR 74, 36.6C, RR 19. Patient reports as he gets more awake he gets more dizzy and sick to his stomach. Patient vomited clear secretion. Medicated for his anxiety and nausea/vomiting. Instructed to do deep breathing. O2 still at 2L via nasal cannula. 0650H Patient is diaphoretic, reports feeling less pressure in his chest. Patient still feels dizzy. Instructed to continue deep breathing exercises
--- NOTE | 2019-04-26 07:48 | PGE_ITS ---
Date of Service Date of service: 04/26/19 Time of Service: 07:48 Assessment and Plan Assessment and plan (1) Primary osteoarthritis of right hip: Status: Chronic Assessment and plan: Kushal is a 53-year-old status post right hip replacement. He is having more pain and I would anticipate. I am concerned that some of his anxiety and underlying dementia has a role to play. Un fortunately, given his multiple drug allergies, and unable to use an anti- inflammatory which would provide good relief. I do think Valium may be very helpful in the treatment of his pain. He got that this morning and seems to be more comfortable. I also would like to transition off of the IV hydromorphone. Given how much she was taken overnight, I did increase his p.o. dose. However, it is imperative that we watch him for any signs of respiratory depression. His urine output has been sluggish, but he has not been consuming any oral liquids. Therefore, will order a bolus. We will keep the Reynolds in place this morning to follow his urine output. I will also order labs, CBC and BMP. While I do not expect to have any major complication with an x-ray before leaving the operating room, will obtain a postoperative AP pelvis to make sure there is no other reason for his increasing pain. He should continue to work with physical therapy. If his chest discomfort or nausea returns, then I would like to obtain an EKG; however, he has no active chest pain, pressure, palpitations at this time. Subjective Subjective Interval history since last seen: Kushal is status post right anterior total hip arthroplasty. He has had much more pain than I would expect from a hip replacement patients. The pain has been better controlled overnight with IV Dilaudid approximately 1 mg IV every 1-2 hours. He was able to rest some last night with this medication regimen. However, his urine output is been low. When he woke up this morning he complained of some dizziness which was associated with some chest discomfort and nausea. However this abated with a wet cloth. He currently has none of those complaints. He reports pain around the right hip with any motion. The preoperative pain deep within the hip and buttock is now gone. He denies numbness or tingling down the leg. He has been independent with transitioning from side to side in the bed and laying on both sides. His vital signs been stable. Exam Narrative Exam Narrative: Resting in a slightly reclined position in the hospital bed. He has a wet cloth over his forehead. He is able to answer questions directly but does seem quite sleepy. He awakens and answers appropriately but quickly closes eyes. He is alert and oriented x3. He is not diaphoretic. He is breathing comfortably without any notable distress or difficulty breathing. Evaluation of the right hip shows a well placed dressing without any signs of discharge. There is no fullness to the right hip or thigh. No ecchymosis. Sensation is diminished just posterior to the incision but is otherwise intact over the anterior thigh and distal, lateral thigh. Muscle testing was not performed at this time but he is able to tolerate some gentle passive int ernal/external rotation without any significant increase in pain. He demonstrates active dorsiflexion plantarflexion of the ankle. Leg lengths appear equal. Objective Objective Clinical Data: Vital Signs Temperature 36.3 C L 04/26/19 06:20 Temperature Source Tympanic 04/26/19 06:20 Pulse 72 04/26/19 06:20 Pulse Rhythm Regular 04/26/19 00:45 Respiratory Rate 18 04/26/19 06:20 Respiratory Effort 04/26/19 00:45 Respiratory Depth Normal 04/26/19 00:45 Respiratory Pattern Normal 04/26/19 00:45 Blood Pressure 117/71 04/26/19 06:20 Pulse Oximetry 100 04/26/19 06:20 Respiratory End-tidal CO2 30 04/25/19 12:25 Oxygen Delivery Method Nasal Cannula 04/26/19 06:20 Oxygen Flow Rate 2 04/26/19 06:20 Pain Level 3 04/26/19 06:13 Comment 04/26/19 06:20 Intake & Output 04/25/19 04/25/19 04/26/19 11:59 23:59 11:59 Intake Total 1320 / 3373.333 2052.333 / 3373.333 100 / 100 Output Total 475 / 475 100 / 100 Balance 845 / 2898.333 2052.333 / 2898.333 0 / 0 Weight 87.6 kg Intake: IV 1120 / 3073.333 1952.333 / 3073.333 100 / 100 Oral 200 / 300 100 / 300 Output: Urine 225 / 225 100 / 100 Estimated Blood Loss 250 / 250 Other: Urine Color Yellow Yellow Straw Urine Appearance Clear Clear Clear Stool Size Moderate Emesis Description None None
[2019-04-26] MEDS: Normal Saline 1,000 ML 2000 ML IV (07:55)
[2019-04-26] MEDS: Omeprazole 20 MG CAPCR PO (07:55)
[2019-04-26] MEDS: Dexamethasone 4 MG TAB PO (07:55)
[2019-04-26] MEDS: Acetaminophen 500 MG TAB 1000 MG PO ×3 (07:55→20:04)
[2019-04-26] MEDS: Losartan 50 MG TAB 100 MG PO (07:55)
[2019-04-26] MEDS: Cetirizine 10 MG TAB PO (07:56)
[2019-04-26 08:02] LABS: HGB 12.8 g/dL (13.5-17.5); Mean Corp. HGB Concentration 32.8 g/dL (32.0-36.0); Mean Corpuscular Hemoglobin 30.9 pg (27.0-33.0); Mean Corpuscular Volume 94.2 fL (80-95); Mean Platelet Volume 9.9 fL (8.0-11.0); Platelet Count 266 x1000/uL (130-400); RBC 4.14 m/cumm (4.50-6.00); RBC Distribution Width 13.7 % (11.8-14.1); White Blood Cell Count 8.72 k/cumm (4.4-10.8)
[2019-04-26 08:31] LABS: Anion Gap 9.1 mmol/L (3-11); BUN 21 mg/dL (7-18); CO2 26.9 mmol/L (21.0-32.0); Calcium 8.4 mg/dL (8.5-10.1); Chloride 102 mmol/L (98-107); Estimated GFR 28.68 (mL/min/1.73m2); Glucose 135 mg/dL (70-100); Potassium 4.4 mmol/L (3.5-5.1); Sodium 138 mmol/L (136-145)
--- NOTE | 2019-04-26 08:36 | INITIAL_ITS ---
- If Service Date Differs Date of service: 04/26/19 Time of Service: 08:36 Care Management Initial Assess REASON FOR HOSPITALIZATION:: Osteoarthritis right hip PAST MEDICAL HISTORY/PAST SURGICAL HISTORY:: Medical History (Updated 04/18/19 @ 14:17 by POLLO Vang). Alzheimer's dementia (Chronic). Depression (Chronic). GERD (gastroesophageal reflux disease) (Chronic). History of anesthesia complications (Acute). Memory loss, combative when waking up during colonoscopy. HTN (hypertension) (Chronic). Surgical History . Colonoscopy - MAC (01/20/17). EGD - IV Sedation (01/24/13). EGD - IV Sedation (06/16/16). Nasal septoplasty (11/05/14). Dr. Milton @ [facility]. Turbinoplasty, Inferior (Bilateral) (11/05/14). Dr. Milton @ [facility] PREVIOUS FUNCTIONAL STATUS/SOCIAL/FAMILY SUPPORTS:: Gopi lives with his Leatha in [place], [place]. He works at [employer]. Gopi is independent at baseline. He has a supportive family with 3 children and 3 grandchildren. CURRENT FUNCTIONAL STATUS:: Gopi was sitting up in bed surrounded by family when CM met with him. He shared that he has been nauseated and has vomitted. He said he has also been having difficulty getting his pain under control. He stated that last night , after several hours of intense pain, he was able to get comfortable with 1 mg of Dilaudid/hr prn. His explained that he had trouble with his respirations after that though, and that he was now on oral pain meds. He said they do not work as well, especially when he vomits, but that at this moment his pain is about a 3/10. He states it goes up to a 5 or 6 every time the SCD pump recycles. ADVANCE DIRECTIVES:: None on file CODE STATUS:: Full Code INSURANCE COVERAGE / FINANCIAL ISSUES:: ANGELIKA LOFTON CURRENT HOME/COMMUNITY SERVICES/EQUIPMENT:: has a walker to use after discharge PRIMARY CARE PHYSICIAN:: Jeevan Vidal PATIENT/FAMILY EDUCATION NEEDS:: Followup with Surgeon and discharge plan of care ANTICIPATED BARRIERS TO DISCHARGE:: none identified TRANSPORTATION:: via automobile with family when ready PLAN:: Gopi will be discharged home, possibly with new services for PT. He will follow up with his surgeon and discharge plan of care. CM will continue to support patient, family and discharge planning process.
[2019-04-26] MEDS: HYDROmorphone 4 MG TAB PO ×4 (09:15→22:58)
--- NOTE | 2019-04-26 11:00 | PT.INTREAT ---
Date of service: 04/26/19 Time of Service: 11:00 PT Notes 04/26/19 SUBJECTIVE: Gopi stating his hip is feeling a little better since receiving pain medication about an hour ago. He notes discomfort through the thigh and calf. He is rating his overall discomfort a 6/10. He has not been able to keep anything down and just threw up right before I walked in the room. He does feel like he needs to get up and move. OBJECTIVE: Pt supine in bed. Agreeable to PT treatment. TRANSFERS Supine to sit: I Sit to supine: Mod A x 2 due to light headedness Sit to stand: SBA Stand to sit: SBA GAIT Device: FWW Weight bearing: AT R Assist: CGA Distance: 5' Vitals: WNL, oxygen saturation and heart rate WNL throughout. Pt on 2 L NC. Nursing recorded vitals at end of PT session, WNL. Pt becomes dizzy and lightheaded after about 5 minutes in the chair. He does vomit several times during this 5 minutes. This therapist and nursing assist pt quickly back to bed due to his symptoms. Again vitals were WNL. ASSESSMENT: Pt is having difficulty managing pain, unable to keep food or liquids down, limiting his functional mobility. PLAN: Continue current POC. We will give pt some time to get his medications/pain/symptoms calmed down and attempt second session of PT this afternoon. Treatment time: 20 minutes [id number] Gisele Huang PTA Clinic location: [facility] [place], [place]
[2019-04-26] MEDS: Scopolamine 1 MG/3 DAYS PATCH TD (11:20)
[2019-04-26] MEDS: Normal Saline 1,000 ML 150 ML IV ×2 (11:22→18:13)
--- NOTE | 2019-04-26 13:04 | DI.RAD_ITS ---
EXAM: XR PELVIS AP INDICATION: post-op pain s/p R RAVINDER. COMPARISON: XR HIP RT COMPLETE AP PELVIS from 09/28/2018 XR HIP RT IN OR from 04/25/2019 TECHNIQUE: 2D digital imaging was performed. FINDINGS: The patient is status post placement of a right total hip prosthesis, which appears unchanged when co mpared with intraoperative images.
[2019-04-26 14:16] LABS: Anion Gap 6.8 mmol/L (3-11); BUN 19 mg/dL (7-18); CO2 26.2 mmol/L (21.0-32.0); CREATININE 1.75 mg/dL (0.70-1.30); Calcium 8.4 mg/dL (8.5-10.1); Chloride 105 mmol/L (98-107); Glucose 137 mg/dL (70-100); Potassium 4.2 mmol/L (3.5-5.1); Sodium 138 mmol/L (136-145)
--- NOTE | 2019-04-26 14:34 | PT.INTREAT ---
Date of service: 04/26/19 Time of Service: 14:34 PT Notes 04/26/19 SUBJECTIVE: Gopi stating he is feeling a little better. He did eat a few crackers and kept them down. He is reporting a 3-4/10 pain scale. OBJECTIVE: Supine in bed. Agreeable to PT treatment. TRANSFERS Sit to supine: I Supine to sit: I Sit to stand: S Stand to sit: S GAIT Device: FWW Weight bearing: AT R Assist: CGA Distance: 5'x2 THEREX: Seated AROM right LE and muscle setting as noted on flow sheet. VITALS: 131/86, HR 76 ASSESSMENT: Tolerates treatment with better ease this afternoon. Less nausea, although with slight dizziness after sitting for greater than 5 minutes. We will progress his functional mobility tomorrow as he is feeling better. PLAN: Continue current POC. Treatment time: 25 minutes [id number], [id number] Gisele Huang PTA Clinic location: [facility] [place], [place]
[2019-04-26] MEDS: amLODIPine 10 MG TAB PO (20:09)
[2019-04-26] MEDS: Rivaroxaban 10 MG TABLET PO (20:09)
[2019-04-26] MEDS: Sertraline 50 MG TAB PO (20:10)
[2019-04-26] MEDS: Tamsulosin 0.4 MG CAPCR PO (20:10)
[2019-04-27 00:13] VITALS: BP 117/76; PULSE 89; RESP 18; TEMP 36.8; O2SAT 99
[2019-04-27] MEDS: Normal Saline 1,000 ML 150 ML IV ×2 (00:57→06:43)
[2019-04-27] MEDS: HYDROmorphone 4 MG TAB PO ×2 (04:45→10:13)
[2019-04-27] MEDS: oxyCODONE 5 MG TAB PO ×2 (05:53→13:27)
[2019-04-27 07:13] LABS: Anion Gap 6.8 mmol/L (3-11); BUN 17 mg/dL (7-18); CO2 25.2 mmol/L (21.0-32.0); CREATININE 1.32 mg/dL (0.70-1.30); Calcium 8.3 mg/dL (8.5-10.1); Chloride 108 mmol/L (98-107); Estimated GFR 57.18 (mL/min/1.73m2); Glucose 128 mg/dL (70-100); Potassium 4.4 mmol/L (3.5-5.1); Sodium 140 mmol/L (136-145)
[2019-04-27 07:20] VITALS: BP 112/68; PULSE 89; RESP 18; TEMP 37.9; O2SAT 96
[2019-04-27] MEDS: Losartan 50 MG TAB 100 MG PO (08:04)
[2019-04-27] MEDS: Acetaminophen 500 MG TAB 1000 MG PO ×2 (08:05→13:27)
[2019-04-27] MEDS: Cetirizine 10 MG TAB PO (08:05)
[2019-04-27] MEDS: Omeprazole 20 MG CAPCR PO (08:05)
[2019-04-27] MEDS: Dexamethasone 4 MG TAB PO (08:05)
[2019-04-27] MEDS: Docusate Sodium 100 MG CAP PO (09:28)
--- NOTE | 2019-04-27 12:11 | PT.INTREAT ---
Date of service: 04/27/19 Time of Service: 12:11 PT Notes Inpatient Physical Therapy Treatment Note [facility] Date: 04/27/19 PRECAUTIONS: Fall, WBAT R SUBJECTIVE: Gopi states that he is feeling much better today than he was the evening of his surgery. He is agreeable to participating in PT, and is hopeful that he will go home later today. OBJECTIVE: PAIN: Patient c/o R knee pain with ther ex and gait training BED MOBILITY/TRANSFERS Supine-sit: I Sit-supine: I Sit-stand: I Stand-sit: I GAIT Assistive Device: FWW Weight bearing: WBAT R Assist: S Distance: 50' + 100' THEREX: Patient completed a LE strengthening and stabilization program, in a supine position, as per flow sheet. STAIRS: Up/down 6x4 and 4x6 using 1 rail/SPC and a step-to pattern with supervision ASSESSMENT: Patient tolerated session well with minimal c/o increased R knee pain with gait training and ther ex. Patient was able to tolerate a progression in gait distance with FWW support and supervision. He would benefit from continued gait training as well as strengthening for improved mobility and activity tolerance. PLAN: Continue with PT's POC TREATMENT CODE/TIME: 40 minutes; [id number] x2, [id number]
[2019-04-27 12:20] VITALS: BP 138/85; PULSE 90; RESP 18; TEMP 37.6; O2SAT 95
--- NOTE | 2019-04-27 12:35 | DSE_ITS ---
Date of service: 04/27/19 Time of Service: 12:35 DS: Diagnosis Discharge Diagnosis (1) Primary osteoarthritis of right hip: Status: Chronic Discharge Plan Disposition Patient Disposition: HOME W/HOME HEALTH SERVICE Condition: Good Discharge Details Reason For Visit: (R) HIP TOTAL Admit Date/Time: 04/25/19 06:00 Admit Provider: Greg Sierra Attending Provider: Greg Sierra Primary Care Provider: Jeevan Vidal Hospital Course Hospital Course: Patient was admitted to the medical/surgical floor following the procedure. It was tolerated well without any notable medical, surgical, or anesthetic complications. Mobilization began postoperatively. There was some increased pain which required modifications to pain plan. Urine output was also sluggish at first with an increase in post-operative Creatinine. Fluids were continued and urine output improved with improved Creatinine. Thus, the delgado catheter wa s removed and voiding spontaneously. Vitals were stable. Physical therapy worked with the patient and was cleared for discharge home. No acute medical issues. Home Meds and New Rx's Prescriptions: New acetaminophen 500 mg tablet 1,000 mg PO Q8H PRN (Reason: pain) Qty: 90 RF: 3 hydromorphone 4 mg tablet 4 mg PO Q4H PRN (Reason: pain) Qty: 18 RF: 0 rivaroxaban 10 mg tablet 10 mg PO DAILY Qty: 32 RF: 0 Continued epinephrine 0.3 mg/0.3 mL auto-injector 0.3 mg IM DAILY PRN (Reason: anaphylaxis) RF: 0 meclizine 12.5 mg tablet 12.5 - 25 mg PO Q6H PRN RF: 0 marijuana inhalation RF: 0 amlodipine 10 mg tablet 10 mg PO DAILY Qty: 90 RF: 3 cetirizine 10 mg tablet 10 mg PO DAILY Qty: 90 RF: 3 losartan 100 mg tablet 100 mg PO DAILY Qty: 90 RF: 3 omeprazole magnesium 20 mg capsule,delayed release(DR/EC) 20 mg PO DAILY Qty: 90 RF: 3 sertraline 50 mg tablet 50 mg PO DAILY Qty: 90 RF: 3 tamsulosin 0.4 mg capsule 0.4 mg PO DAILY Qty: 90 RF: 3 Discharge Instructions Additional Instructions: Dr. Sierra?s Total Hip Discharge Instructions Activity: The most important activity is to walk. You should try to take short walks a few times a day. You have no restrictions on movement or positioning, but do not try to force what you do. You will find some stiffness and weakness with hip flexion (lifting your knee). Do not try to strengthen this too early, continue to practice walking and stairs and this will come. - Outpatient physical therapy can be helpful to help return you to a normal gait and improve your flexibility and strength. This can start around 2 weeks. For some patients, it?s not necessary. Usually this is determined at the time of discharge or at the first post-operative visit. - You should wear the IRINEO hose on both legs for 2 weeks. Dressing: Keep the surgical dressing in place for at least one week. After the first week it may be removed and replace with light gauze and tape or nothing. It may get wet after 3 days but avoid soaking the dressing. If it gets wet, just lightly pat dry. It is important to always keep some gauze between skin folds, especially when you are sitting. Spend some time with the wound exposed when you are lying flat as the incision does wrinkle onto itself. Medications: - You should take Tylenol as your primary pain control medications - You have been prescribed a stronger pain medication Hydromorphone for breakthrough pain, take as needed as prescribed. - You have also been prescribed a stomach acid reduction agent Pantoprozole to help reduce stomach acid and reflux. - You will be taking Rivaroxaban 10mg daily for DVT prevention unless instructed otherwise. - If you have constipation you should take Colace or Miralax (both [id number] nter). It takes most people 3-4 days to have a bowel movement. Follow-up: 2 weeks 1. Encounter Date and Reason I certify that KARYNA REMY was seen by Greg Sierra MD on 04/27/19 and that I had a [id number] encounter with this patient that meets the physician face to face encounter requirements. 2. Clinical Findings Supporting Skilled Need and Homebound Status I certify that home health services are medically necessary, include either intermittent fdc and/or physical/speech therapy, and that this patient is homebound in that absences from the home require considerable and taxing effort and are infrequent or of short duration, or are attributable to the need to receive medical care. [X] (a) Attached documentation from encounter provides clinical findings supporting skilled need and homebound status (including what assistance patient requires to leave the home). The encounter with the patient was in whole, or in part, for the following medical condition, which is the primary reason for home health care: (R) HIP TOTAL Fci: Physical Therapy: Karyna would benefit from physical therapy to address weakness and lack of motion about the right hip. He is s/p anterior right total hip arthroplasty. He has no restrictions. Speech Therapy: Homebound: Karyna is homebound due to significant pain and weakness s/p hip repalcement. He is unable to leave his home unassisted. 3. Certification and Authentication I certify that I composed the above information based on my clinical judgement relating to this patient's medical condition and, if applicable, clinical findings communicated to me by the NPP or inpatient physician who performed the Home Health Referral. All further orders will be obtained through Dr. Greg Sierra Stand Alone Forms: Nursing Discharge Form Referrals: Greg Sierra MD [ [facility] STAFF PHYSICIAN] - Activity:: Activity as Tolerated Equipment/Supplies:: No Equipment Needed Diet:: As Tolerated Discharge Orders Discharge Orders: Discharge Order (Routine); Ordered 04/27/19 Ordered By: Greg Sierra DS: Summary Status at Discharge Functional status at discharge: uses cane/walker Overall status at discharge: patient is progressing back to baseline Mental Status: mental status grossly normal Speech and Movement: speech and movement normal Mood: congruent mood Affect: normal affect Exam Psych Mental Status: mental status grossly normal Speech and Movement: speech and movement normal Mood: congruent mood Affect: normal affect DS: Data Vitals/I&O Vitals and I&O: Vital Signs Temperature 37.6 C H 04/27/19 12:20 Temperature Source Tympanic 04/27/19 12:20 Pulse 90 04/27/19 12:20 Pulse Rhythm Regular 04/27/19 09:41 Respiratory Rate 18 04/27/19 12:20 Respiratory Effort Non-Labored 04/27/19 09:41 Respiratory Depth Normal 04/27/19 09:41 Respiratory Pattern Normal 04/27/19 09:41 Blood Pressure 138/85 04/27/19 12:20 Pulse Oximetry 95 04/27/19 12:20 Respiratory End-tidal CO2 30 04/25/19 12:25 Oxygen Delivery Method Room Air 04/27/19 12:20 Oxygen Flow Rate 0 04/27/19 12:20 Pain Level 4 04/27/19 10:13 Comment 04/26/19 10:30 Intake & Output 04/26/19 04/27/19 04/27/19 23:59 11:59 23:59 Intake Total 2790 / 4550 2387.5 / 2387.5 Output Total 300 / 400 1150 / 1150 Balance 2490 / 4150 1237.5 / 1237.5 Intake: IV 2000 / 3760 1907.5 / 1907.5 Oral 790 / 790 480 / 480 Output: Urine 300 / 400 1150 / 1150 Other: Urine Color Dark Aurora Light Aurora Light Aurora Urine Appearance Clear Clear Clear Urine Odor None None Comment PER PATIENT AND , VOIDED LARGE AMOUNT IN TOILET THEN FLUSHED Data Completed and Pending Labs on day of discharge: Labs from last 24 hours 04/27/19 04/26/19 06:35 13:50 Sodium 140 138 Potassium 4.4 4.2 Chloride 108 H 105 Carbon Dioxide 25.2 26.2 Anion Gap 6.8 6.8 BUN 17 19 H Creatinine 1.32 H 1.75 H Estimated GFR/1.73 m2 57.18 41.30 Glucose 128 H 137 H Calcium 8.3 L 8.4 L [facility] Medical History Alzheimer's dementia (Chronic) Depression (Chronic) GERD (gastroesophageal reflux disease) (Chronic) History of anesthesia complications (Acute) Memory loss, combative when waking up during colonoscopy HTN (hypertension) (Chronic) Surgical History Colonoscopy - MAC (01/20/17) EGD - IV Sedation (01/24/13) EGD - IV Sedation (06/16/16) Nasal septoplasty (11/05/14) Dr. Milton @ [facility] Turbinoplasty, Inferior (Bilateral) (11/05/14) Dr. Milton @ [facility] Family History Mother Essential hypertension Depression Father Essential hypertension Personal history of malignant neoplasm SKIN/LUNG Heart disease Sister Essential hypertension Heart disease Grandfather Essential hypertension Hyperlipidemia Grandfather Personal history of malignant neoplasm Hyperlipidemia Grandmother Heart disease Grandmother Heart disease Stroke Sister Essential hypertension Hyperlipidemia Son No problems noted. Daughter No problems noted. Social History Smoking/Tobacco Use Status: Never Smokeless tobacco user: chewing tobacco Quit status: has quit before Alcohol Intake: current Alcohol Intake frequency: 3 or more drinks per day Alcohol type: beer Details: Previously 4-5 daily. Now no during the week, but has about 12 on weekends Drug use: Daily Substance use type: marijuana Household members: spouse Number of Children: 2 Do you feel safe in your relationship?: Yes
--- NOTE | 2019-04-27 17:29 | CMDISCH_ITS ---
- If Service Date Differs Date of service: 04/27/19 Time of Service: 17:29 LACE Index Scoring Tool - Questions: Length of Stay (in days): 2 Acuity (Admit via E.D.?): No Comorbidities: Dementia E.D. Visits: 1 - Answers: Total Score: 6 Risk of Readmission: Low Risk Care Management Discharge Reason for Hospitalization: Osteoarthritis right hip Discharge Plan: Gopi will be discharged home with no new services. He will follow up with his surgeon and discharge plan of care. He will transport via private vehicle with . Patient/Family Education Needs: Discharge plan, limitations, follow up plan and Ask Me Three. Gopi and his also completed [facility] AD forms which were witnessed and filed by MANOJ.
--- NOTE | 2019-05-01 08:19 | INDS_ITS ---
Date of service: 05/01/19 PT Notes Inpatient Physical Therapy Discharge Summary Dates: 05/01/2019 Dates of Service: 04/25/2019 through 04/26/2019 Date: 04/25/2019 Referring Doctor: Greg Sierra MD PT Orders: PT CONSULT: s/p R Anterior RAVINDER Precautions: Fall. Standard. WBAT on right LE Patient Profile/Admitting Diagnosis: Patient is a 53-year-old male s/p R RAVINDER anterior approach POD 0 due to primary osteoarthritis. PMHX: Medical History (Updated 04/18/19 @ 14:17 by POLLO Vang) Alzheimer's dementia (Chronic) Depression (Chronic) GERD (gastroesophageal reflux disease) (Chronic) History of anesthesia complications (Acute) Memory loss, combative when waking up during colonoscopy HTN (hypertension) (Chronic) Surgical History Colonoscopy - MAC (01/20/17) EGD - IV Sedation (01/24/13) EGD - IV Sedation (06/16/16) Nasal septoplasty (11/05/14) Dr. Milton @ [facility] Turbinoplasty, Inferior (Bilateral) (11/05/14) Dr. Milton @ [facility] Social History/Home Situation: Patient lives with his in a 2-story home with 2 steps steps with bilateral rails. They have flight to the second floor where their bedroom is, rail on the left going up. Patient is independent with all aspects of ADLs without the need for an assistive ambulatory device nor adaptive equipment prior to admission. 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 Equipment Owned/DME: FWW Subjective: NT Objective: General Observation: NT Mental Status: NT Pain: NT ROM: Right Lower Extremity: Hip flexion WFL. Hip abduction WFL. Knee flexion WFL. Ankle dorsiflexion WFL. Ankle plantarflexion WFL. Left Lower Extremity: Hip flexion WFL. Hip abduction WFL. Knee flexion WFL. Ankle dorsiflexion WFL. Ankle plantarflexion WFL. Strength: Right Lower Extremity: Hip flexors 3-/5. Hip abductors 3-/5. Knee flexors 3-/5. Knee extensors 3-/5. Ankle dorsiflexors 3-/5. Ankle plantarflexors 3-/5. Left Lower Extremity: Hip flexors 4/5. Hip abductors 5/5. Knee flexors 5/5. Knee extensors 5/5. Ankle dorsiflexors 4/5. Ankle plantarflexors 5/5. Sensation: Intact as to pain and pressure on bilateral lower extremities. Bed Mobility/Transfers: Rolling: Independent Supine to sit: Independent Sit to supine: Independent Sit to stand: Independent Stand to sit: Independent Bed to chair: Independent Chair to bed: Independent Gait: Patient ambulated 50? + 100' with FWW and CGA, using a step-to gait pattern transferring from bedside commode back to bed. He exhibited decreased step length, janes, and decreased gait velocity. Patient manged to negotiate six 4-inch steps and four 6-inch steps while holding onto 1 rail and a SC. Balance: Static Sitting: Normal Dynamic Sitting: Normal Static Standing: Fair Dynamic Standing: Fair Assessment: Patient is a 53-year-old male s/p R RAVINDER anterior approach POD 0. He reported severe pain in the R LE, as well as nausea. He reported he had not eaten since the previous evening, and believed the medications he had on an empty stomach were contributing. He successfully transferred to a bedside commode and back to his bed with CGA, and FWW. He has the love and support of his , and appears to be a motivated individual. His prognosis is good. Patient continues to present with clinical signs and symptoms consistent with current/admitting diagnoses that have resulted to mobility limitations, gait instability, generalized weakness, and impairment of motor control as demonstrated by the following impairment level findings: 1. Decreased strength to B LE major muscle groups 2. Impaired sitting/standing balance 3. Impaired activity tolerance 4. Limitation of joint range of motion in left lower extremity Impairments are contributing to the following functional limitations: 1. Dependent bed mobility skills 2. Increased dependence with transfers 3. Inability to safely ambulate without assistive device and physical assistance 4. Increase completion time for mobility ADL performance 5. Increased fall risk 6. Inability to negotiate steps alone safely Goals: Goals X1 week 1. Supine-Sit independent MET 2. Sit-Supine independent MET 3. Sit-Stand independent MET 4. Stand-Sit independent MET 5. Bed-Chair independent MET 6. Chair-Bed independent MET 7. Independent gait on level surface with use of least restrictive device for at least 300 feet without report of pain nor dyspnea NOT MET 8. Independent stair negotiation while holding onto bilateral rails for at least 15 steps without report of pain nor dyspnea NOT MET 9. Independent with home exercise program NOT MET 10. Good static and dynamic standing balance/tolerance NOT MET DISCHARGE RECOMMENDATIONS: Patient is to be discharged under the care of his after all of the above goals are met and he is medically stable. May benefit from skilled physical therapy services according to orthopedic surgeon's timeline recommendations. Patient will be educated and trained on home exercise program per TKA exercise protocol in preparation for outpatient physical therapy services. TREATMENT CODE/TIME:NC. Thank you very much for this referral. Brittney Luna PT, DPT, CLT [facility]
== END 2019-04-27 14:20 | disposition home health service (06) | DRG 470 ==
LOC: PDS 10:31 → MS 10:33
PROVIDERS: Admitting Provider Student in an Organized Health Care Education/Training Program; PCP Family Medicine; Visit Provider Student in an Organized Health Care Education/Training Program
PROC: 0SR904A Replacement of Right Hip Joint with Ceramic on Polyethylene Synthetic Substitute, Uncemented, Open Approach (ICD-10-PCS; CPT 27130; principal; 2019-04-25 07:30)
DX: M16.11 Unilateral primary osteoarthritis, right hip (principal); M25.541 Pain in joints of right hand; Z96.641 Presence of right artificial hip joint; G89.18 Other acute postprocedural pain; Z88.6 Allergy status to analgesic agent; G30.0 Alzheimer's disease with early onset; F02.80 Dementia in other diseases classified elsewhere, unspecified severity, without behavioral disturbance, psychotic disturbance, mood disturbance, and anxiety; K21.9 Gastro-esophageal reflux disease without esophagitis; I10 Essential (primary) hypertension; F17.220 Nicotine dependence, chewing tobacco, uncomplicated; F12.90 Cannabis use, unspecified, uncomplicated; Z23 Encounter for immunization
CPT/HCPCS: 27130; 36415; 80048; 85027; 97110; 97162; 97530; NC; 72170; 73501; J0690; J2405; J3010; J8540

== ENCOUNTER 2019-05-11 10:58 | Outpatient (CLI) | payer BC, SELFPAY ==
--- NOTE | 2019-05-11 10:45 | DI.RAD_ITS ---
EXAM: XR HIP RT COMPLETE AP PELVIS INDICATION: 1st post op. COMPARISON: XR PELVIS AP from 04/26/2019 TECHNIQUE: 2D digital imaging was performed. FINDINGS: There has been no change in the appearance of the right total hip prosthesis or surrounding bone. M oderate degenerative changes are again noted in the left hip.
== END 2019-05-11 11:18 ==
PROVIDERS: PCP Family Medicine; Visit Provider Physician Assistant
DX: Z96.641 Presence of right artificial hip joint (principal); Z47.1 Aftercare following joint replacement surgery; M16.12 Unilateral primary osteoarthritis, left hip
CPT/HCPCS: 73502

== ENCOUNTER 2020-04-25 10:24 | Outpatient (CLI) | payer BC, SELFPAY ==
--- NOTE | 2020-04-25 10:15 | DI.RAD_ITS ---
EXAM: XR HIP RT AP LAT ONLY CLINICAL HISTORY: annual f/u. TECHNIQUE: 2D digital imaging was performed. COMPARISON: CR XR HIP RT COMPLETE AP PELVIS from 05/11/2019 FINDINGS: BONES: There are stable post operative changes present. No fracture or dislocation. JOINTS: The joint spaces are well maintained. No joint effusion is present. SOFT TISSUE: Normal. IMPRESSION: Stable postoperative changes. DATA REPOSITORY: RADIATION DOSE DELIVERED:
== END 2020-04-25 10:44 ==
PROVIDERS: PCP Family Medicine; Referring Provider Family Medicine; Visit Provider Student in an Organized Health Care Education/Training Program
DX: Z96.641 Presence of right artificial hip joint (principal)
CPT/HCPCS: 73502

== ENCOUNTER 2020-07-08 10:18 | Outpatient (CLI) | payer BC, SELFPAY ==
[2020-07-09 19:20] LABS: COVID-19 RT-PCR UVMMC Result Negative (Negative)
== END 2020-07-08 10:38 ==
PROVIDERS: PCP Family Medicine; Visit Provider Family Medicine
DX: Z20.828 Contact with and (suspected) exposure to other viral communicable diseases (principal)
CPT/HCPCS: U0003

== ENCOUNTER 2020-07-30 03:31 | Outpatient (CLI) | payer BC, SELFPAY ==
[2020-07-30 16:02] LABS: Hemoglobin A1C 5.6 % (<5.7)
[2020-07-30 17:02] LABS: ALT 33 U/L (16-63); AST 17 U/L (15-37); Albumin 4.3 g/dL (3.4-5.0); Alkaline Phosphatase 111 U/L (46-116); Anion Gap 11.6 mmol/L (3-11); BUN 19 mg/dL (7-18); Bilirubin, Total 0.4 mg/dL (0.2-1.0); CO2 24.4 mmol/L (21.0-32.0); CREATININE 1.48 mg/dL (0.70-1.30); Calcium 9.5 mg/dL (8.5-10.1); Calculated LDL 182 mg/dL (<100); Chloride 103 mmol/L (98-107); Cholesterol 282 mg/dL (<200); Estimated GFR 49.72 (mL/min/1.73m2); Glucose 99 mg/dL (74-106); HDL Cholesterol 52 mg/dL (40-60); Potassium 4.2 mmol/L (3.5-5.1); Sodium 139 mmol/L (136-145); Total Protein 7.4 g/dL (6.4-8.2); Triglyceride 244 mg/dL (<150)
[2020-07-30 22:46] LABS: PSA, Screening 3.3 ng/mL (0.0-3.5)
[2020-07-31 11:02] LABS: HCT 47.8 % (40.0-50.0); HGB 16.3 g/dL (13.5-17.5); MCH 30.7 pg (27.0-33.0); MCHC 34.1 % (32.0-36.0); Platelet Count 361 10^3/uL (130-400); RBC 5.31 10^6/uL (4.36-5.78); RDW 12.9 % (11.8-14.1); RDW-SD 42.5 fL; WBC 7.47 10^3/uL (4.4-10.8)
== END 2020-07-30 03:51 ==
PROVIDERS: PCP Family Medicine; Visit Provider Family Medicine
DX: R10.9 Unspecified abdominal pain (principal); E78.5 Hyperlipidemia, unspecified; R73.9 Hyperglycemia, unspecified; Z12.5 Encounter for screening for malignant neoplasm of prostate
CPT/HCPCS: 36415; 80053; 80061; 84153; 85027; 83036

== ENCOUNTER 2020-08-06 01:52 | Outpatient (CLI) | payer BC, SELFPAY ==
--- NOTE | 2020-08-06 07:15 | DI.US_ITS ---
EXAM: US ABDOMEN CLINICAL HISTORY: RUQ pain r/o gallbladder disease,R10.9 TECHNIQUE: Ultrasound abdomen performed using standard protocol. COMPARISON: No exams were available for comparison FINDINGS: LIVER: Normal size and echogenicity. No focal liver lesions are seen.. GALLBLADDER: No evidence of cholelithiasis. No evidence of wall thickening. No pericholecystic fluid identified. SMITH'S SIGN: Negative. BILIARY SYSTEM: No intrahepatic or extrahepatic biliary ductal dilation. KIDNEYS: Kidneys are symmetric in size. No evidence of renal calculi. No evidence of hydronephrosis. No renal mass or cyst identified. PANCREAS: Normal where visualized. SPLEEN: Not enlarged. ABDOMINAL AORTA AND IVC: Visualized portions normal caliber. ASCITES: None seen. IMPRESSION: Normal sonographic appearance of the upper abdomen. DATA REPOSITORY:
== END 2020-08-06 02:12 ==
PROVIDERS: PCP Family Medicine; Visit Provider Family Medicine
DX: R10.9 Unspecified abdominal pain (principal)
CPT/HCPCS: 76700

== ENCOUNTER 2021-01-22 10:26 | Outpatient (CLI) | payer BC, SELFPAY ==
[2021-01-23 12:43] LABS: COVID-19 RT-PCR UVMMC Result Negative (Negative)
== END 2021-01-22 10:27 | disposition home or self-care (01) ==
PROVIDERS: PCP Family Medicine; Visit Provider Family Medicine
DX: Z20.822 Contact with and (suspected) exposure to COVID-19 (principal)
CPT/HCPCS: U0003

== ENCOUNTER 2021-02-11 13:43 | Outpatient (CLI) | payer BC, SELFPAY ==
--- NOTE | 2021-02-11 13:00 | DI.RAD_ITS ---
Exam(s) XR HUMERUS LT EXAM: XR HUMERUS LT CLINICAL HISTORY: LEFT ARM PAIN TECHNIQUE: COMPARISON: No exams were available for comparison FINDINGS: Two views were obtained. No bony or soft tissue abnormality seen. IMPRESSION: RADIATION DOSE DELIVERED: Total DLP
== END 2021-02-11 13:44 | disposition home or self-care (01) ==
LOC: DIORS 13:43
PROVIDERS: PCP Family Medicine; Referring Provider Family Medicine; Visit Provider Student in an Organized Health Care Education/Training Program
DX: M79.602 Pain in left arm (principal)
CPT/HCPCS: 73060

== ENCOUNTER 2021-11-12 01:12 | Outpatient (CLI) | payer OTHER, SELFPAY ==
[2021-11-12 12:31] LABS: ESR 2 mm/hr (0-20)
[2021-11-12 12:44] LABS: Anion Gap 8.2 mmol/L (3-11); BUN 19 mg/dL (7-18); C-Reactive Protein 0.31 mg/dL (0.0-0.3); CO2 28.8 mmol/L (21.0-32.0); CREATININE 1.3 mg/dL (0.70-1.30); Calculated LDL 181 mg/dL (<100); Chloride 107 mmol/L (98-107); Cholesterol 251 mg/dL (<200); Estimated GFR 57.53 (mL/min/1.73m2); Glucose 101 mg/dL (74-106); HDL Cholesterol 54 mg/dL (40-60); Potassium 5.4 mmol/L (3.5-5.1); Sodium 144 mmol/L (136-145); Triglyceride 84 mg/dL (<150)
[2021-11-12 17:21] LABS: Rheumatoid Factor <8.6 IU/mL (<12.0)
[2021-11-13 15:09] LABS: ANA Interpretation Negative (Negative)
== END 2021-11-12 01:13 | disposition home or self-care (01) ==
LOC: LOS 01:13
PROVIDERS: PCP Family Medicine; Visit Provider Family Medicine
DX: E78.5 Hyperlipidemia, unspecified (principal); R41.89 Other symptoms and signs involving cognitive functions and awareness; E87.1 Hypo-osmolality and hyponatremia; M25.50 Pain in unspecified joint; M19.90 Unspecified osteoarthritis, unspecified site
CPT/HCPCS: 36415; 80048; 80061; 85652; 86038; 86140; 86431

== ENCOUNTER 2022-01-30 02:16 | Outpatient (CLI) | payer OTHER, SELFPAY ==
[2022-01-30 16:52] LABS: Anion Gap 9.7 mmol/L (3-11); CO2 25.3 mmol/L (21.0-32.0); Chloride 105 mmol/L (98-107); LDL CHOLESTEROL 159 mg/dL (<100); Potassium 4.3 mmol/L (3.5-5.1); Sodium 140 mmol/L (136-145); TSH (W/Ref FT4) 1.21 uIU/mL (0.36-3.74)
[2022-01-30 17:31] LABS: Vitamin B12 416 pg/mL (193-986)
== END 2022-01-30 02:17 | disposition home or self-care (01) ==
LOC: LBO 02:17
PROVIDERS: Psychiatry & Neurology Neurology; PCP Family Medicine; Visit Provider Family Medicine
DX: E78.5 Hyperlipidemia, unspecified (principal); E87.1 Hypo-osmolality and hyponatremia; R41.3 Other amnesia; G62.9 Polyneuropathy, unspecified
CPT/HCPCS: 36415; 80051; 83721; 82607; 84443

== ENCOUNTER 2022-06-30 09:07 | Outpatient (CLI) | payer OTHER, SELFPAY ==
[2022-06-30 17:47] LABS: PSA, Screening 5.3 ng/mL (<=3.5)
== END 2022-06-30 09:08 | disposition home or self-care (01) ==
LOC: LOS 09:07
PROVIDERS: PCP Family Medicine; Referring Provider Family Medicine; Visit Provider Family Medicine
DX: Z12.5 Encounter for screening for malignant neoplasm of prostate (principal)
CPT/HCPCS: 36415; 84153

== ENCOUNTER 2022-08-17 03:28 | Outpatient (CLI) | payer OTHER, SELFPAY ==
[2022-08-17 23:12] LABS: PSA, Diagnostic 6.6 ng/mL (<=3.5)
== END 2022-08-17 03:29 | disposition home or self-care (01) ==
PROVIDERS: PCP Family Medicine; Visit Provider Family Medicine
DX: R97.20 Elevated prostate specific antigen [PSA] (principal)
CPT/HCPCS: 36415; 84153

== ENCOUNTER 2023-04-08 09:31 | Outpatient (CLI) | payer OTHER, SELFPAY ==
--- NOTE | 2023-04-08 09:30 | RT.EKG_ITS ---
APPROVED REPORT Exam: Resting ECG Reason for Exam: Chest pain Patient Location: O HR:56 bpm ECG Measurements Heart Rate 56 AXIS MT 178 P 26 QRSd 89 QRS 22 QT 381 T 20 QTc 368 Conclusion Sinus rhythm...normal P axis, V-rate 50- 99 Abnormal R-wave progression, early transition...QRS area>0 in V2
== END 2023-04-08 09:32 | disposition home or self-care (01) ==
LOC: DI.CM 09:31
PROVIDERS: PCP Family Medicine; Visit Provider Family Medicine
DX: R07.9 Chest pain, unspecified (principal)
CPT/HCPCS: 93010

== ENCOUNTER 2023-04-08 09:31 | Outpatient (CLI) | payer OTHER, SELFPAY ==
[2023-04-08 19:27] LABS: PSA, Diagnostic 4.4 ng/mL (<=3.5)
== END 2023-04-08 09:32 | disposition home or self-care (01) ==
LOC: LOS 09:31
PROVIDERS: Urology; PCP Family Medicine; Referring Provider Family Medicine; Visit Provider Family Medicine
DX: R97.20 Elevated prostate specific antigen [PSA] (principal)
CPT/HCPCS: 36415; 84153

== ENCOUNTER → 2023-04-15 01:23 | Outpatient (CLI) | payer OTHER, SELFPAY ==
--- NOTE | 2023-04-15 07:30 | DI.NM_ITS ---
APPROVED REPORT Exam: Exercise Treadmill Patient Location: Out-Patient Room/Bed: Stress Nurse: Melba Ruby RN Ordering Provider:LADAN GOMES, Contact Number: [phone] BMI: 32.61 Baseline Rhythm: Sinus Bradycardia Indications: Chest pain, Medical History Medical History: Chest pain, ETOH abuse, syncope, memory loss, HLD, HTN, anxiety, GERD, sleep apnea, depression Cardiac Medications: Certirizine, amlodipine, tamsulosin, sertraline, omeprazole. olmesatan, hydrochl orathiazide, epinephrine auto injector Allergies: Amoxicillin, ibuprofen, naproxen, penicillin, bees, clavulanic acid, aspirin, mold, morphi ne, spiders Cardiac Risk Factors: Family hx, HTN, HLD, tobacco use (chewing tobacco), Previous Cardiac Procedures: None Pretest Chest Pain Characteristics: None Exercise History: Physically active Physical Disabilities: None Lung Sounds: Clear to auscultation Heart Sounds: Regular Stress Test Details Test: Exercise stress testing was performed using a Juan protocol. Nuclear Acquisition: Rest Tc-99m/Stress Tc-99m 1 day Rest Isotope: Tc-99m Sestamibi. Dose: 10.0 Date: 04/15/2023 Injection Time: 0854 Stress Isotope: Tc-99m Sestamibi. Dose: 30.0 Date: 04/15/2023 Injection Time: 1025 HR Resting HR Supine: 52 bpm Max Heart Rate (APMHR): 165 bpm Resting HR Standin bpm Target HR (85% APMHR): 140 bpm Max HR Achieved: 164 bpm % of APMHR: 99 Recovery HR: 95 bpm HR response to stress: Normal HR response to stress BP Resting BP Supine: 118/78 mmHg Resting BP Standin/84 mmHg Max BP: 190/82 mmHg Recovery BP: 124/78 mmHg BP response to stress: Normal blood pressure response to stress. ECG Resting ECG: Sinus Bradycardia Ectopy: None Stress ECG: Sinus Tachycardia ST Change: No significant ST segment changes noted Arrhythmia: None Recovery ECG: Sinus Rhythm Recovery ST Change: No significant ST segment changes noted Recovery Arrhythmia: None Clinical Reason for Termination: Target HR Achieved, Fatigue Stress Symptoms: General Fatigue, Dyspnea Exercise duration: 10 min52 sec Highest Stage Reached: Stage 4: 4.2 mph at 16% grade. Exercise capacity: 13 METs Angina Score: None Perez Treadmill Score: 9.9 Rate Pressure Product: [id number] Stress ECG Conclusion 1. Resting electrocardiogram was within normal limits 2. Patient exercised on the Juan protocol completed a workload of 13 METS 3. Normal heart rate and blood pressure response to exercise. Patient achieved 99% of predicted hear t rate for age 4. There was no electrocardiographic evidence of myocardial ischemia 5. There were no dysrhythmias 6. See MPI report Perez Treadmill Score is 9.9 which is Low risk. Stress Test Summary STAGE Time (mins) Speed (mph) Grade (%) HR BP SpO2 SYMPTOMS METS Supine 52 118/78 Standing 59 110/84 1 3 1.7 10 96 140/82 4.5 2 6 2.5 12 124 130/80 7 3 9 3.4 14 162 10 4 12 4.2 16 164 13 1 min recovery 140 190/82 3 min recovery 99 155/74 6 min recovery 95 124/78 MPI Conclusion Myocardial perfusion is normal. There is no ischemia or evidence of prior infarction Ejection fraction is 61% with normal wall motion Radiologist Interpretation Radiologist agrees with Lubricator Granulator's Interpretation. Radiologist Interpretation by: Segundo German MD Interpretation Date/Time: 04/15/2023 15:53:25
== END ==
PROVIDERS: PCP Family Medicine; Visit Provider Family Medicine
DX: R07.9 Chest pain, unspecified (principal)
CPT/HCPCS: 78452; 93017

== ENCOUNTER 2023-09-14 04:14 | Outpatient (CLI) | payer OTHER, SELFPAY ==
[2023-09-14 10:52] LABS: CREATININE 1.4 mg/dL (0.70-1.30); Calculated LDL 181 mg/dL (<100); Cholesterol 257 mg/dL (<200); Estimated GFR 58.99 (mL/min/1.73m2); HDL Cholesterol 51 mg/dL (40-60); Triglyceride 127 mg/dL (<150)
== END 2023-09-14 04:15 | disposition home or self-care (01) ==
LOC: LOS 04:19
PROVIDERS: PCP Family Medicine; Visit Provider Family Medicine
DX: E78.5 Hyperlipidemia, unspecified (principal); I10 Essential (primary) hypertension
CPT/HCPCS: 36415; 80061; 82565; 84132

== ENCOUNTER 2023-10-21 05:29 | Outpatient (CLI) | payer OTHER, SELFPAY ==
[2023-10-21 18:25] LABS: PSA, Diagnostic 4.8 ng/mL (<=3.5)
== END 2023-10-21 05:30 | disposition home or self-care (01) ==
LOC: LBO 05:30
PROVIDERS: PCP Family Medicine; Visit Provider Urology
DX: R97.20 Elevated prostate specific antigen [PSA] (principal)
CPT/HCPCS: 36415; 84153

== ENCOUNTER 2024-04-18 03:01 | Outpatient (CLI) | payer BC, SELFPAY ==
[2024-04-18 17:48] LABS: Glucose 106 mg/dL (74-106)
== END 2024-04-18 03:02 | disposition home or self-care (01) ==
LOC: LBO 03:01
PROVIDERS: PCP Family Medicine; Visit Provider Urology
DX: R97.20 Elevated prostate specific antigen [PSA] (principal); R73.9 Hyperglycemia, unspecified
CPT/HCPCS: 36415; 82947; 84153

== ENCOUNTER 2024-05-30 14:56 | Outpatient (CLI) | payer BC, SELFPAY ==
--- NOTE | 2024-05-30 14:00 | DI.RAD_ITS ---
Exam(s) XR SHOULDER RT COMPLETE 2+V EXAM: XR SHOULDER RT COMPLETE 2+V CLINICAL HISTORY: RIGHT SHOULDER PAIN. TECHNIQUE: 2D digital imaging was performed. Two views. COMPARISON: CR RIGHT SHOULDER COMPLETE from 03/19/2013 FINDINGS: Exam limited by artifact from overlying clothing. BONES: No acute fracture is present. No bony destructive lesion is seen. Spurring at the tip of the acromion and greater tuberosity. JOINTS: No dislocation present. Glenohumeral joint space is maintained. Mild periarticular spurring . Mild degenerative changes at the AC joint. SOFT TISSUE: Normal. IMPRESSION: Mild degenerative changes. DATA REPOSITORY: RADIATION DOSE DELIVERED:
== END 2024-05-30 14:57 | disposition home or self-care (01) ==
LOC: DIORS 14:56
PROVIDERS: PCP Family Medicine; Visit Provider Student in an Organized Health Care Education/Training Program
DX: M19.011 Primary osteoarthritis, right shoulder (principal)
CPT/HCPCS: 73030

== ENCOUNTER 2024-06-22 02:07 | Outpatient (CLI) | payer BC, SELFPAY ==
--- NOTE | 2024-06-22 | DI.MRI_ITS ---
Exam(s) MR UPPER JOINT RT WO EXAM: MR UPPER JOINT RT WO CLINICAL HISTORY: rt shoulder pain/instability, r/o rtc tear, labral tear, M25.311, S43.439A. TECHNIQUE: Multiplanar multisequence MRI was performed. COMPARISON: None. FINDINGS: BONES: There is no fracture or contusion pattern. Degenerative changes in superior humeral head. S purring at the tip and undersurface of the acromion. Mild spurring at the lesser tuberosity JOINTS:The acromioclavicular joint shows mild spurring. There is some fluid in the AC joint. The glenohumeral joint shows a moderate joint effusion.. There are degenerative changes at the labru m as well as cartilage thinning. The humeral head articulates with the undersurface of the acromion. TENDONS: Supraspinatus: Full-thickness tear with retraction to the level of the AC joint. Infraspinatus: Abnormal high signal in distal infraspinatus tendon suspicious for severe partial tear . Subscapularis: Thinning of fibers of some intervening fluid consistent with partial tear. Teres Minor: Unremarkable. Biceps and Guy: Upper biceps tendon shows some thickening and intermediate signal. It is mildly m edially subluxed superiorly. MUSCLES: Mild atrophy is of the supraspinatus and infraspinatus muscles. GLENOID LABRUM: Unremarkable on this noncontrast examination. SOFT TISSUES: Unremarkable. BURSAE: Subacromial and subdeltoid bursae shows moderate quantity of fluid. Some fluid also cyst no tamiko in subcoracoid bursa. There are loose bodies in the subcoracoid bursa. IMPRESSION: Full-thickness tear and retraction of the supraspinatus tendon. Severe partial tears of the infraspinatus and sub scapularis tendons. Tendinosis of the upper biceps tendon tendon which is mildly medially subluxed superiorly. Joint effusion. Fluid in subcoracoid bursa and 2 loose bodies. DATA REPOSITORY:
== END 2024-06-22 02:27 ==
LOC: DI 02:07
PROVIDERS: PCP Family Medicine; Visit Provider Student in an Organized Health Care Education/Training Program
DX: M75.121 Complete rotator cuff tear or rupture of right shoulder, not specified as traumatic (principal)
CPT/HCPCS: 73221

== ENCOUNTER 2024-09-06 05:59 | Day surgery (SDC) | payer BC, SELFPAY ==
--- NOTE | 2024-09-05 19:16 | ANES.PREOP_ITS ---
General Info Date of Service Date Performed: 09/06/24 Height: 5 ft 4 in Weight: 87.543 kg Body Mass Index (BMI): 33.1 Surgical Procedure: Operation Date: 09/06/24 07:40 Proposed Procedure Side Surgeon p Shoulder Reverse Total Arthroplasty, Biceps Tenodesis, Depuy Right Ibrahima Camacho MD Meds Allergies and Home Medications Allergies Allergy/AdvReac Type Severity Reaction Status Date / Time amoxicillin Allergy Severe Anaphylaxsi Verified 09/06/24 06:23 s ibuprofen Allergy Severe Anaphylaxsi Verified 09/06/24 06:23 s naproxen Allergy Severe Anaphylaxsi Verified 09/06/24 06:23 s Penicillins Allergy Severe Anaphylaxsi Verified 09/06/24 06:23 s venom-honey bee Allergy Severe Anaphylaxsi Verified 09/06/24 06:23 s clavulanic acid Allergy Mild RASH Verified 09/06/24 06:23 aspirin AdvReac Intermediate Skin Rash Verified 09/06/24 06:23 mold AdvReac Intermediate Skin Rash Verified 09/06/24 06:23 morphine AdvReac Unknown Anaphylaxis Verified 09/06/24 06:23 spiders AdvReac Severe hives, Uncoded 09/06/24 06:23 difficulty breathing Home Medication ?Medication ?Instructions ?Recorded marijuana inhalation 02/09/19 acetaminophen 500 mg tablet 1,000 mg (2 x 500 mg) PO Q8H PRN 04/27/19 pain #90 tabs omeprazole magnesium 20 mg 20 mg PO DAILY #90 caps 02/21/24 capsule,delayed release cetirizine 10 mg tablet See Rx Instructions .Route 03/20/24 .COMPLEX #90 tabs olmesartan 40 See Rx Instructions .Route 05/08/24 mg-hydrochlorothiazide 12.5 mg .COMPLEX #90 tabs tablet triamcinolone acetonide 0.1 % 1 applic topical BID PRN rash #30 06/20/24 topical cream grams epinephrine 0.3 mg/0.3 mL 0.3 mg (0.3 mL) IM DAILY PRN 08/29/24 injection, auto-injector anaphylaxis #2 ea amlodipine 5 mg tablet 5 mg PO HS 09/06/24 sertraline 50 mg tablet 50 mg PO HS 09/06/24 tamsulosin 0.4 mg capsule 0.4 mg PO HS 09/06/24 Current Visit Medications: Current Medications Generic Name Dose Route Start Last Admin Trade Name Freq PRN Reason Stop Dose Admin Ringer's Solution 1,000 mls @ 30 mls/hr 09/06/24 06:00 IV 10/05/24 23:59 INFUSION NIKI Cefazolin Sodium/Dextrose 2 gm in 50 mls @ 100 mls/hr 09/06/24 06:00 Ancef Duplex IVPB 10/05/24 23:59 PREOP NIKI Tranexamic Acid/Sodium Chloride 1,000 mg in 100 mls @ 600 mls/hr 09/06/24 06:00 IVPB 10/05/24 23:59 PREOP NIKI IV Miscellaneous Supplies 1 each 09/06/24 06:00 Iv Access IV 10/05/24 23:59 DIRECTED NIKI Sodium Chloride 0 ml 09/06/24 06:00 Normal Saline Flush 10 Ml Syr IV 10/05/24 23:59 PRN PRN Sodium Chloride 0 ml 09/06/24 06:00 Normal Saline 10 Ml Vial IJ 10/05/24 23:59 DIRECTED PRN Sterile Water 0 ml 09/06/24 06:00 Water,Injection,Sterile 10 Ml Vial IJ 10/05/24 23:59 DIRECTED PRN PFSH Active Problems Active Problems: Problem Status Onset Code Rotator cuff arthropathy of right shoulder Acute M12.811 Labral tear of shoulder Acute S43.439A Instability of right shoulder joint Acute M25.311 Dislocation of shoulder, right, closed Acute S43.004A Tear of biceps tendon Acute S46.219A Chest pain Acute R07.9 Alcohol abuse Chronic F10.10 Encounter for imaging to screen for metal prior to MRI Acute Z01.89 Elevated PSA Acute R97.20 COVID-19 Acute ~01/15/22 U07.1 Hyperkalemia Acute E87.5 Arthralgia Acute M25.50 Sleep apnea Acute 02/07/15 G47.30 Memory loss Acute R41.3 Lipoma of arm Acute D17.20 Chronic arthralgias of knees and hips Acute M25.551, M25.552, M25.561, M25.562, G89.29 Seborrheic keratosis Acute L82.1 Chronic prostatitis Acute N41.1 RUQ pain Acute R10.11 History of total right hip replacement Acute 04/25/19 Z96.641 Syncope Acute 06/17/13 R55 Primary progressive aphasia Acute 04/01/16 G31.01, F02.80 Nasal congestion Acute 11/22/14 R09.81 Kidney stone on right side Acute 08/14/16 N20.0 Hyperlipidemia Acute E78.5 Gastropathy Acute 06/16/16 K31.9 Essential hypertension Acute 05/16/13 I10 Benign prostatic hyperplasia with urinary obstruction Acute 11/07/13 N40.1, N13.8 Goodrich's esophagus without dysplasia Acute 02/02/13 K22.70 Anxiety Acute 11/07/13 F41.9 Medical History Medical History Depression GERD (gastroesophageal reflux disease) History of anesthesia complications Memory loss, combative when waking up during colonoscopy HTN (hypertension) Surgical History Surgical History Colonoscopy - MAC (01/20/17) EGD - IV Sedation (01/24/13) EGD - IV Sedation (06/16/16) Nasal septoplasty (11/05/14) Dr. Milton @ [facility] Turbinoplasty, Inferior (Bilateral) (11/05/14) Dr. Milton @ [facility] Tobacco Smoking/Tobacco Use Status: Current every day Tobacco Type: smokeless tobacco Smokeless tobacco user: chewing tobacco Passive smoking exposure: No Alcohol Alcohol Intake: current Alcohol intake frequency: a few times a month Alcohol type: beer Details: Previously 4-5 daily. Now no during the week, but has about 12 on weekends Substance Use Substance use: Daily Substance use type: marijuana Vital Signs and Lab Results Vital Signs Most Recent Vital Signs in EMR: Temp Pulse Resp BP Pulse Ox 36.2 C L 61 16 127/73 98 09/06/24 06:05 09/06/24 06:05 09/06/24 06:05 09/06/24 06:05 09/06/24 06:05 Lab Results Blood Type / Crossmatch: No Data to Display Complete Blood Count: No Data to Display Complete Metabolic Panel: No Data to Display Liver Function Panel: No Data to Display Coagulation Panel: No Data to Display Cardiac Panel: No Data to Display Arterial Blood Gas: No Data to Display Venous Blood Gas: No Data to Display Pancreas Panel: No Data to Display Thyroid Panel: No Data to Display Infectious Disease: No Data to Display Blood Cultures: No Data to Display Toxicology Panel: No Data to Display Anesthesia Assessment and Plan Anesthesia History Personal History: Other Family History: Other Exercise Tolerance Exercise Tolerance: Metabolic Equivalents>4 Cardiac & Pulmonary Exam Cardiac Exam: Normal S1/S2 Heart Sounds Pulmonary Exam: Clear Bilateral Breath Sounds Implantable Cardiac Device Does patient have a Pacemaker or an ICD?: No Airway Exam Known Difficult Airway: No Mallampati Class: 3 Mouth Opening: Normal (> 3cm) Thyromental Distance: Less than 3 cm Neck Range of Motion: Limited ROM Neck Circumference: Thick Teeth Condition: Normal Dentition and Loose or Chipped ASA Classification ASA Score: ASA 2 Emergency Case?: No NPO Status NPO Status: NPO Clears >2 hours, Solids >8 hours Anesthesia Plan Resuscitation Status: Full Code Anesthesia Technique: General Anesthesia Airway Planned: Endotracheal Tube Pain Management: Surgeon and patient request nerve block Monitors Used: Standard Monitors Preoperative Comments:: 59 yo male for total shoulder. Multiple allergies, has been seen at [facility] allergy. Sig PMHx: HTN (amlodipine, olmesartan, HCTZ), MAX (CPAP), gastritis/GERD (omeprazole), anxiety, daily EtOH (has cut way back)/cannabis. smokeless tobacco. EKG: sinus. ECHO: LVEF 60-65%, no WMA. Stress: 13 METs, no ECG ischemia. no ischemia or prior infarct. Carotid: no sig stenosis. Previous Anes: combative on wake up. - RAVINDER, spinal, prop sedation, no issues. - colo, prop, natural airway, no issues. - EGD, prop/fent/midaz, chest pain on waking with coughing.
[2024-09-06] VITALS (24 sets, daily range): BP systolic 97–127; BP diastolic 47–73; PULSE 53–78; RESP 14–26; TEMP 36.2–36.8; O2SAT 92–98; BMI 33.1
--- NOTE | 2024-09-06 07:08 | W.PM.DSUDISC ---
Date of service: 09/06/24 Discharge Plan Disposition Patient Disposition: Home Condition: Stable Discharge Details Attending Provider: Ibrahima Camacho Primary Care Provider: Jeevan Vidal Home Meds and New Rx's Prescriptions: New oxycodone 5 mg tablet 5 - 10 mg PO .q4-6h MDD 30 mg PRN (Reason: severe pain) Qty: 18 0RF Continued marijuana inhalation Patient Comments: I smoke every night for my early onset dementia. Pipe. triamcinolone acetonide 0.1 % cream 1 applic topical BID PRN (Reason: rash) Qty: 30 0RF omeprazole magnesium 20 mg capsule,delayed release(DR/EC) 20 mg PO DAILY Qty: 90 2RF cetirizine 10 mg tablet See Rx Instructions .ROUTE .COMPLEX Qty: 90 2RF Dose Instruction: Take 1 tablet by mouth daily. Rx Instructions: Take 1 tablet by mouth daily. olmesartan-hydrochlorothiazide 40-12.5 mg tablet See Rx Instructions .ROUTE .COMPLEX Qty: 90 3RF Dose Instruction: Take 1 tablet by mouth daily. Rx Instructions: Take 1 tablet by mouth daily. epinephrine 0.3 mg/0.3 mL auto-injector 0.3 mg IM DAILY PRN (Reason: anaphylaxis) Qty: 2 0RF amlodipine 5 mg tablet 5 mg PO HS tamsulosin 0.4 mg capsule 0.4 mg PO HS sertraline 50 mg tablet 50 mg PO HS acetaminophen 500 mg tablet 1,000 mg PO Q8H PRN (Reason: pain) Qty: 90 3RF Discharge Instructions Additional Instructions: Surgery: Right reverse total shoulder arthroplasty with biceps tenodesis 09/06/24 Activity: Do not lift anything heavier than a coffee. You should keep your arm at your side in a relatively neutral position at all times except for gentle range of motion exercises, physical therapy, and essential activities. You should use the sling whenever you are out of the house. At home it is best to remove the sling and rest the arm on a pillow at your side or support the operative side with your other hand. A physical therapy prescription will be sent electronically to start in about 3 weeks. Standard Reverse TSA Protocol. Prescriptions: Oxycodone 5 mg take 1-2 every 4-6 hours as needed for severe pain You may use nara-ooe-qhrvwmy Tylenol (acetaminophen) as needed for mild pain. These pain medications may be taken all at once or in different combinations as needed. Also, recommend Colace (docusate) as a stool softener as surgery and pain medicine cause constipation. You may try axcl-nje-drqwzem diphenhydramine (Benadryl) 25-50 mg nightly as a sleep aid Dressings: Leave dressing in place until follow-up. Keep clean and dry at all times. No showers please. Follow-up: 10-[address] Camacho You may take off the leg compression stockings this evening at home. You may also leave them on a few days longer if you have a history of leg swelling or edema. Please call the office during business hours with any questions or concerns. Let us know right away if you develop any redness, drainage, fevers, chest pain, or trouble breathing. Do not drink alcohol or drive for at least 24 hours after anesthesia. Discharge Orders Discharge Orders: Discharge Order (Routine); Ordered 09/06/24 Ordered By: Mena Noble DS: Diagnosis Discharge Diagnosis (1) Rotator cuff arthropathy of right shoulder: Status: Acute
[2024-09-06] MEDS: Lactated Ringers 1,000 ML 30 ML IV (07:15)
--- NOTE | 2024-09-06 07:50 | W.PM.OP ---
Operative Note Operative Note PRE-OP DIAGNOSIS: Right: 1. Bony bankart fx/non-union 2. Irreparable rotator cuff tearing 3. Long head of the biceps medial subluxation/ partial tearing POST-OP DIAGNOSIS: same PROCEDURE: Right: 1. Reverse total shoulder arthroplasty, CPT # 46662 2. Open biceps tenodesis, CPT # 87231 The assistant sales manager was medically required as this procedure involves retraction, protection of neurovascular structures, and manipulation of multiple instruments and implants at the same time, which cannot be done without a skilled assistant sales manager. SURGEON: Ibrahima Camacho TECHNICAL SUPPORT ENGINEER: Mena Noble ANESTHESIA TYPE: Local By Surgeon, General LMA/ETT and Primary Nerve Block Refer to Anesthesia Record ESTIMATED BLOOD LOSS: 150 COMPLICATIONS: None Patient was transported to: PACU Patient's condition: stable Implants: [employer] Inhance shoulder system Small baseplate with 25 mm central screw and 35, 30, and 20 mm peripheral locking screws 36 +8 mm glenosphere Medium standard stem with +0 mm shell and +0 mm liner Indications: Please see complete medical record for details. Findings: Significant chronic supraspinatus infraspinatus deficiency/tearing. High-grade partial biceps medial subluxation into subscapularis partial tearing. Moderate central to inferior glenoid chondromalacia. 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 Procedure Description: In the operating room, general anesthesia was induced. The patient was positioned beachchair on the operating room table. All bony prominences were well-padded. Preoperative antibiotics were administered. The shoulder was prepped and draped in the usual sterile fashion for shoulder arthroplasty. The correct patient, procedure, and side of the procedure were all verified prior to incision. The deltopectoral approach was preinjected with 0.25% bupivacaine containing epinephrine and taken to the anterior shoulder. Care was taken to bluntly dissect the interval between the deltoid and pectoralis major muscles and to identify the cephalic vein within its fat stripe. The the vein was mobilized laterally. Subdeltoid space and conjoined tendon were freed of adhesions. The long head of the biceps tendon was identified just lateral to the lesser tuberosity. The uppermost margin of the pectoralis major tendon was released from the proximal humerus. The long head of the biceps tendon was identified within the bicipital groove and tenodesed at its clark's point tension with a few ties of xtvlld-yq-mjgkw suture tape to the upper margin of the pectoralis major tendon. The subscapularis remnant was peeled while delivering the proximal humerus into external rotation. Appropriate coagulation was achieved especially interiorly. The anatomic neck was cut using an oscillating saw with the humeral head bone brought back table in case there was a need for future bone grafting. Attention was then turned to the glenoid and retractors were placed and a circumferential release performed using the long head of the biceps remnant to remove soft tissue about the glenoid rim as well as the anterior inferior bony Bankart nonunion fragments. Care was taken inferiorly to work on bone only between 5 and 7:00 o'clock and bluntly elevate tissues inferiorly. The guide was placed on the glenoid and used to confirm placement and trajectory of the central guidepin. The guidepin was inserted and advanced just through the far cortex ensuring adequate central fixation length. The glenoid was prepared according to hair specialist specifications for the baseplate and central screw. The baseplate was impacted onto the glenoid surface with good fit followed by compressive fixation with the central screw. The locking guide was then used to drill and place appropriately lengthed anterior, inferior, and posterior screws. The wtez-kri-vxirdnzlw reamer was used to confirm adequate peripheral reaming and screw heads flush in the baseplate. The glenosphere was sized and 36 mm most appropriate. A +8 mm trial glenosphere was then secured to the baseplate. The proximal humerus was delivered from the wound with adduction and external rotation. The proximal humerus was sized followed by insertion of the bicortical pin and over reaming. The blaze was then used with good bony fixation followed by the pin broaches to confirm correct orientation down the canal with care to maintain about 30 degrees retroversion and sufficient lateral to inline humeral alignment. A small bout of bone was removed laterally and inferiorly given the increased size superior-inferior relative to medial-lateral. The final stem was then impacted with excellent fit fixation strength and rotational control. Trialing was then done with a 0 mm shell and liner and demonstrated excellent stability and tension. The trial shell and liner were removed. The trial glenosphere was removed and the final glenosphere impacted into place taking care to ensure no soft tissue impingement followed by appropriate confirmation with the setting of the setscrew. The final shell was impacted, checked, and then the final liner was clicked appropriately into place, range of motion, stability, and tension confirmed. The shoulder was copiously irrigated with Betadine and normal saline. Hemostasis was appropriate. 1g Vancomycin powder was distributed in the deep tissues. The deltopectoral interval was well-approximated. Subcutaneous tissue was irrigated then closed using 2-0 Monocryl in a buried interrupted fashion. Skin was closed using 3-0 Monocryl in a buried subcuticular fashion. Skin glue was applied to the incision. A silver impregnated bandage was placed over the incision. The extremity was placed into a shoulder immobilizer. The patient awoke from anesthesia without complication and was taken to the recovery room in stable condition. Date of Procedure: 09/06/24
[2024-09-06] MEDS: ceFAZolin 2 GM/50 ML BAG IVPB (08:03)
[2024-09-06] MEDS: TRANEXAMIC ACID/SOD. CHL. 1,000 MG/100 ML BAG 600 MG IVPB (08:11)
--- NOTE | 2024-09-06 08:18 | W.ANESNERVE ---
Nerve Block Single Injection Procedure Date and Time Date Performed: 09/06/24 Procedure Start: 07:29 Location Where Procedure Performed Procedure Location: Day Surgery Unit Reason Performed: Postoperative Analgesia Requesting Provider: Ibrahima Camacho Timeout Performed Timeout Performed: Yes Monitoring Used ECG, Blood Pressure and SpO2 Sterility Sterility: Hand Hygiene, Surgical Cap, Surgical Mask, Sterile Gloves and Chlorhexidine Sedation Given During Procedure Sedation Given (Indicate Dose Given): Versed IV Dose:: 3 mg Patient Mental Status Patient Mental Status: Other Nerve Block 1st Nerve Block: Laterality: Right Block Type: Interscalene Ultrasound Image Saved?: Yes Needle / Catheter Used: 100mm SonoPlex II Local Anesthetic Bolus (Indicate Dose Given): Lidocaine used for local infiltration of skin, Bupivacaine 0.5% Dose:: 10 mL and Exparel Dose:: 10 mL Additives (Indicate Dose Given): None Ultrasound: Sterile probe cover and gel used Nerve Stimulator: Supplement to Ultrasound use and No twitch or parasthesia noted < 0.5 mA Paresthesia: None Procedure Tolerated: No Complications Procedure Outcome: Successful Procedure Comment: Given cannabis and EtOH history midaz 3 mg given. This resulted in him being very sleepy and very jumpy. Local on skin lead to significant jump and moving. Repositioned and block needle very slowly advanced with constant verbal reminders of what we where doing. Decision to not abort and do after induction due to with very slow advancement and verbal reminders he was able to remain appropriately still for the procedure. Given technically challenging anatomy and very jumpy with sedation I would recommend less to no sedation in the future. Performed By: Simone Cornelius
[2024-09-06] MEDS: Bupivacaine 0.25% Pres-Free W/EPI 30 ML VIAL (08:40)
[2024-09-06] MEDS: ceFAZolin 1 GM/50 ML BAG IVPB (11:35)
[2024-09-06] MEDS: fentaNYL 100 MCG/2 ML VIAL IVP ×2 (11:45→12:15)
--- NOTE | 2024-09-06 11:51 | W.ANESPOSTOP ---
Postoperative Evaluation Date, Time and Location Date Performed: 09/06/24 Time Performed: 11:51 Patient Location: PACU Vital Signs Most Recent Imported Vital Signs: Most Recent Vital Signs Temp Pulse Resp BP Pulse Ox 36.5 C 58 L 18 121/70 95 09/06/24 07:22 09/06/24 07:22 09/06/24 07:22 09/06/24 07:22 09/06/24 07:22 Pain Score Most Recent Pain Score: Most Recent Pain Score Pain Level 0 09/06/24 07:22 Assessment Mental Status: Awake (Alert & Oriented to Patient Baseline) Airway and Respiratory Function: Patent airway with normal (patient baseline) respiratory exam Cardiovascular Function: Hemodynamically Stable Hydration Status: Adequately Hydrated Nausea & Vomiting: No Nausea or Vomiting Pain: Pain is tolerable per patient Peripheral Nerve Block: Regional nerve block not resolved at time of post operative discharge
--- NOTE | 2024-09-06 12:03 | DI.RAD_ITS ---
Exam(s) XR SHOULDER RT COMPLETE 2+V EXAM: XR SHOULDER RT COMPLETE 2+V CLINICAL HISTORY: shoulder arthritis. TECHNIQUE: 2D digital imaging was performed. Three views. COMPARISON: CR XR SHOULDER RT COMPLETE 2+V from 05/30/[address] UPPER EXTREMITY RT WO from 06/29/2024 FINDINGS: BONES: No acute fracture is present. No bony destructive lesion is seen. JOINTS: Status post placement of a a reverse shoulder prosthesis. Alignment appears satisfactory SOFT TISSUE: Residual postsurgical air in the soft tissues. IMPRESSION: Status post placement of reverse shoulder prosthesis DATA REPOSITORY: RADIATION DOSE DELIVERED:
[2024-09-06] MEDS: Lactobacillus Acidophilus CAP 1 CAP PO (13:37)
== END 2024-09-06 14:10 | disposition home or self-care (01) ==
PROVIDERS: PCP Family Medicine; Visit Provider Student in an Organized Health Care Education/Training Program
PROC: (CPT 23472; principal; 2024-09-06 07:30)
DX: M12.811 Other specific arthropathies, not elsewhere classified, right shoulder (principal); S43.431A Superior glenoid labrum lesion of right shoulder, initial encounter; S46.111A Strain of muscle, fascia and tendon of long head of biceps, right arm, initial encounter; M75.111 Incomplete rotator cuff tear or rupture of right shoulder, not specified as traumatic; S42.141A Displaced fracture of glenoid cavity of scapula, right shoulder, initial encounter for closed fracture; X58.XXXA Exposure to other specified factors, initial encounter; G89.18 Other acute postprocedural pain
CPT/HCPCS: 23472; 23430; 64415; 73030; J0131; J0665; J0666; J0690; J1100; J1805; J2250; J2405; J2704; J3010; J3370

== ENCOUNTER 2024-09-19 15:53 | Outpatient (CLI) | payer BC, SELFPAY ==
--- NOTE | 2024-09-19 13:45 | DI.RAD_ITS ---
Exam(s) XR SHOULDER RT COMPLETE 2+V EXAM: XR SHOULDER RT COMPLETE 2+V CLINICAL HISTORY: F/U RIGHT RTSA. TECHNIQUE: 2D digital imaging was performed. COMPARISON: Postop images of 09/06/2021 FINDINGS: Stable position alignment of the components of the recently placed reverse prosthesis. No evidence o f fracture or loosening and no radiographic evidence of osteomyelitis. No abnormal soft tissue densi ties. IMPRESSION: Stable satisfactory appearance DATA REPOSITORY: RADIATION DOSE DELIVERED:
== END 2024-09-19 15:54 | disposition home or self-care (01) ==
LOC: DIORS 15:54
PROVIDERS: PCP Family Medicine; Visit Provider Student in an Organized Health Care Education/Training Program
DX: M12.811 Other specific arthropathies, not elsewhere classified, right shoulder (principal)
CPT/HCPCS: 73030

== ENCOUNTER 2024-09-21 02:33 | Outpatient (CLI) | payer BC, SELFPAY ==
[2024-09-21 17:24] LABS: CREATININE 2.1 mg/dL (0.70-1.30); Calculated LDL 169 mg/dL (<100); Cholesterol 256 mg/dL (<200); Estimated GFR 36.04 (mL/min/1.73m2); HDL Cholesterol 53 mg/dL (>or=40); Potassium 4.3 mmol/L (3.5-5.1); Triglyceride 173 mg/dL (<150)
[2024-09-22 09:24] LABS: Lab Add On Test DONE
[2024-09-22 09:34] LABS: BUN 29 mg/dL (7-18)
== END 2024-09-21 02:34 | disposition home or self-care (01) ==
PROVIDERS: PCP Family Medicine; Visit Provider Family Medicine
DX: I10 Essential (primary) hypertension (principal); E78.5 Hyperlipidemia, unspecified; N28.9 Disorder of kidney and ureter, unspecified
CPT/HCPCS: 36415; 80061; 84520; 82565; 84132

== ENCOUNTER 2024-12-19 09:21 | Outpatient (CLI) | payer BC, SELFPAY ==
[2024-12-19 10:38] LABS: BUN 22 mg/dL (7-18); CREATININE 1.5 mg/dL (0.70-1.30); Estimated GFR 53.96 (mL/min/1.73m2)
[2024-12-19 19:44] LABS: PSA, Diagnostic 4.4 ng/mL (<=3.5)
== END 2024-12-19 09:22 | disposition home or self-care (01) ==
LOC: LBO 09:22
PROVIDERS: PCP Family Medicine; Visit Provider Urology
DX: R97.20 Elevated prostate specific antigen [PSA] (principal); N28.9 Disorder of kidney and ureter, unspecified; I10 Essential (primary) hypertension
CPT/HCPCS: 36415; 84520; 82565; 84153

== ENCOUNTER 2025-01-24 15:05 | Outpatient (CLI) | payer BC, SELFPAY ==
--- NOTE | 2025-01-24 15:00 | DI.RAD_ITS ---
Exam(s) XR SHOULDER RT COMPLETE 2+V EXAM: XR SHOULDER RT COMPLETE 2+V CLINICAL HISTORY: F/U RIGHT RTSA. TECHNIQUE: 2D digital imaging was performed. COMPARISON: CR XR SHOULDER RT COMPLETE 2+V from 09/19/2024 FINDINGS: Two views There is continued stable appearance of the components of the right shoulder reverse prosthesis. No fracture or loosening the components evident. No evidence of osteomyelitis. IMPRESSION: Stable satisfactory appearance of the reverse right shoulder prosthesis DATA REPOSITORY: RADIATION DOSE DELIVERED:
== END 2025-01-24 15:06 | disposition home or self-care (01) ==
LOC: DIORS 15:05
PROVIDERS: PCP Family Medicine; Visit Provider Student in an Organized Health Care Education/Training Program
DX: M12.811 Other specific arthropathies, not elsewhere classified, right shoulder (principal); Z96.611 Presence of right artificial shoulder joint
CPT/HCPCS: 73030

== ENCOUNTER 2025-01-30 08:38 | Outpatient (CLI) | payer BC, SELFPAY ==
[2025-01-30 12:36] LABS: ALT 34 U/L (16-63); AST 15 U/L (15-37); Albumin 3.7 g/dL (3.4-5.0); Alkaline Phosphatase 98 U/L (46-116); Bilirubin, Direct 0.1 mg/dL (0.0-0.2); Bilirubin, Total 0.3 mg/dL (0.2-1.0); Total Protein 7.0 g/dL (6.4-8.2)
== END 2025-01-30 08:39 | disposition home or self-care (01) ==
PROVIDERS: PCP Family Medicine; Referring Provider Family Medicine; Visit Provider Family Medicine
DX: G72.89 Other specified myopathies (principal)
CPT/HCPCS: 36415; 80076

== ENCOUNTER 2025-03-19 08:55 | Emergency (ER) | payer BC, SELFPAY ==
[2025-03-19 09:06] VITALS: BP 142/80; PULSE 90; RESP 18; TEMP 36.7; O2SAT 99
[2025-03-19 09:35] LABS: Glucose Negative (Negative)
[2025-03-19 11:20] VITALS: BP 134/86; PULSE 82; RESP 17; TEMP 36.8; O2SAT 95
--- NOTE | 2025-03-19 14:48 | ED.GENADUL_ITS ---
Discharge Plan Disposition Patient Disposition: Home Discharge Details Clinical Impression: Dysuria Primary Care Provider: Jeevan Vidal ED Provider: Marlene Dorado Home Meds and New Rx's Prescriptions: New phenazopyridine [Pyridium] 200 mg tablet 200 mg PO TID PRNQty: 6 0RF Continued marijuana inhalation Patient Comments: I smoke every night for my early onset dementia. Pipe. triamcinolone acetonide 0.1 % cream 1 applic topical BID PRN (Reason: rash) Qty: 30 0RF olmesartan-hydrochlorothiazide 40-12.5 mg tablet See Rx Instructions .ROUTE .COMPLEX Qty: 90 3RF Dose Instruction: Take 1 tablet by mouth daily. Rx Instructions: Take 1 tablet by mouth daily. epinephrine 0.3 mg/0.3 mL auto-injector 0.3 mg IM DAILY PRN (Reason: anaphylaxis) Qty: 2 0RF amlodipine 5 mg tablet 5 mg PO HS Qty: 90 3RF tamsulosin 0.4 mg capsule 0.4 mg PO HS Qty: 90 3RF omeprazole 20 mg capsule,delayed release(DR/EC) 20 mg PO DAILY Qty: 90 3RF sertraline 50 mg tablet 50 mg PO HS Qty: 90 3RF cetirizine 10 mg tablet See Rx Instructions .ROUTE .COMPLEX Qty: 90 2RF Dose Instruction: Take 1 tablet by mouth daily. Rx Instructions: Take 1 tablet by mouth daily. acetaminophen 500 mg tablet 1,000 mg PO Q8H PRN (Reason: pain) Qty: 90 3RF Discharge Instructions Instructions: Dysuria (ED) Additional Instructions: Take Tylenol as needed for discomfort If you have any Pyridium this will help with the burning you will take it for the next 2 days as needed do not take more than as prescribed Your urine culture will return in 48 hours and you will need close outpatient follow-up, I recommend scheduling an appointment with your PCP for 48-hour recheck I have also made urology aware that you have been in a facility She develop fever, chills, or with any new or worsening complaints please return for reassessment Referrals: Jeevan Vidal MD [Primary Care Provider, Medicine] Discharge Data Discharge Date/Time-TO BE ENTERED AT DEPARTURE: 03/19/25 11:20 HPI General Date/Time Provider Initiated Documentation: 03/19/25 09:11 . HPI Narrative: This 59-year-old male presents with dysuria and frequency since yesterday morning. Denies flank pain. He states he has a history of prostatitis but states this feels differently denies any scrotal pain. Has pain with ejaculation and with urination. Sexually active and monogamous with his denies risk of sexually transmitted disease. Denies any hematuria or blood in his ejaculate. Denies any flank pain. Denies any rashes or lesions denies any trauma. Related Data Home Medications ?Medication ?Instructions ?Recorded ?Confirmed marijuana inhalation 02/09/19 01/30/25 acetaminophen 500 mg tablet 1,000 mg (2 x 500 mg) PO Q 8H PRN 04/27/19 03/19/25 pain #90 tabs olmesartan 40 See Rx Instructions .Route 1 03/19/25 mg-hydrochlorothiazide 12.5 mg .COMPLEX #90 tabs tablet triamcinolone acetonide 0.1 % 1 applic topical BID PRN rash #30 06/20/24 03/19/25 topical cream grams epinephrine 0.3 mg/0.3 mL 0.3 mg (0.3 mL) IM DAILY PRN 08/29/24 03/19/25 injection, auto-injector anaphylaxis #2 ea amlodipine 5 mg tablet 5 mg PO HS #90 tabs 09/20/24 03/19/25 tamsulosin 0.4 mg capsule 0.4 mg PO HS #90 caps 03/19/25 omeprazole 20 mg capsule,delayed 20 mg PO DAILY #90 ca ps 10/30/24 03/19/25 release sertraline 50 mg tablet 50 mg PO HS #90 tabs 11/07/ 5 03/19/25 cetirizine 10 mg tablet See Rx Instructions .Route 0 11/28/24 03/19/25 .COMPLEX #90 tabs phenazopyridine 200 mg tablet 200 mg PO TID PRN 6 dose s #6 tabs 03/19/25 (Pyridium) Previous Rx's ?Medication ?Instructions ?Recorded acetaminophen 500 mg tablet 1,000 mg (2 x 500 mg) PO Q 8H PRN 04/27/19 pain #90 tabs olmesartan 40 See Rx Instructions .Route 1 mg-hydrochlorothiazide 12.5 mg .COMPLEX #90 tabs tablet triamcinolone acetonide 0.1 % 1 applic topical BID PRN rash #30 06/20/24 topical cream grams epinephrine 0.3 mg/0.3 mL 0.3 mg (0.3 mL) IM DAILY PRN 08/29/24 injection, auto-injector anaphylaxis #2 ea amlodipine 5 mg tablet 5 mg PO HS #90 tabs 09/20/24 tamsulosin 0.4 mg capsule 0.4 mg PO HS #90 caps omeprazole 20 mg capsule,delayed 20 mg PO DAILY #90 ca ps 10/30/24 release sertraline 50 mg tablet 50 mg PO HS #90 tabs 5 cetirizine 10 mg tablet See Rx Instructions .Route 0 11/28/24 .COMPLEX #90 tabs phenazopyridine 200 mg tablet 200 mg PO TID PRN 6 dose s #6 tabs 03/19/25 (Pyridium) Allergies Allergy/AdvReac Type Severity Reaction Status Date / Time amoxicillin Allergy Severe Anaphylaxsi Unverified 03/19/25 09:27 s ibuprofen Allergy Severe Anaphylaxsi Unverified 03/19/25 09:27 s naproxen Allergy Severe Anaphylaxsi Unverified 03/19/25 09:27 s Penicillins Allergy Severe Anaphylaxsi Unverified 03/19/25 09:27 s venom-honey bee Allergy Severe Anaphylaxsi Verified 03/19/25 09:27 s aspirin AdvReac Intermediate Skin Rash Unverified 03/19/25 09:27 mold AdvReac Intermediate Skin Rash Verified 03/19/25 09:27 spiders AdvReac Severe hives, Uncoded 03/19/25 09:27 difficulty breathing General Stated Complaint: Urinary CRESCENCIO: 4 Exam Narrative Exam Narrative: Alert and oriented 59-year-old male in no acute distress no abdominal tenderness no CVA tenderness, distal pulses intact Course Vital Signs Vital signs: Vital Signs Temperature 36.7 C 03/19/25 09:06 Pulse 90 03/19/25 09:06 Respiratory Rate 18 03/19/25 09:06 Blood Pressure 142/80 H 03/19/25 09:06 Pulse Oximetry 99 03/19/25 09:06 Temperature 36.8 C 03/19/25 11:20 Temperature Source Oral 03/19/25 09:06 Pulse 82 03/19/25 11:20 Respiratory Rate 17 03/19/25 11:20 Respiratory Effort Normal, Non-Labored 03/19/25 11:04 Respiratory Depth Normal 03/19/25 11:04 Blood Pressure 134/86 03/19/25 11:20 Blood Pressure Position Sitting 03/19/25 09:06 Pulse Oximetry 95 03/19/25 11:20 Oxygen Delivery Method Room Air 03/19/25 11:04 Oxygen Flow Rate 0 03/19/25 11:04 Pain Level 8 03/19/25 09:06 Lab/Test Results Lab/Test Results: 03/19/25 09:12 Urine - Clean Catch Urine Culture - Pending Laboratory Tests Range/Units 03/19/25 09:12 Urine Color (Yellow) Yellow Urine Clarity (Clear) Clear Urine pH (5-8) 5.5 Ur Specific [place] (1.005-1.025) 1.015 Urine Protein (Neg-Trace) mg/dL Negative Urine Ketones (Negative) mg/dL Negative Urine Blood (Negative) Negative Urine Nitrite (Negative) Negative Urine Bilirubin (Negative) Negative Urine Urobilinogen (Up to 0.2) mg/dL 0.2 Ur Leukocyte Esterase (Negative) Negative Urine Glucose (Negative) mg/dL Negative Medical Decision Making This 79-year-old male presents with report of urinary symptoms. We did spend some time reviewing his MRI of his prostate and CT his abdomen and pelvis. There is no acute abnormality as recent as the end of December when he had his last CT abdomen and pelvis. Urinalysis is reassuring there is no blood nitrates or leukocyte esterase. I spoke with Cindi Cid, urology nurse practitioner and she does not recommend initiating antibiotics at this time rather holding for urine culture. I ordered the urine culture and patient was given Pyridium and will continue on his Flomax. The differential after reviewing with Cindi could certainly be an inflammatory process as well. Patient otherwise has stable vitals and labs and is encouraged to follow-up closely with primary care physician in 24 to 48 hours for reassessment PFSH All Active Problems (Updated 03/19/25 @ 11:12 by POLLO Bojorquez) Dysuria (Acute) Tobacco abuse (Acute) chewing tobacco Rotator cuff arthropathy of right shoulder (Acute) s/p Right reverse total shoulder arthroplasty with biceps tenodesis 09/06/24 Labral tear of shoulder (Acute) Instability of right shoulder joint (Acute) Dislocation of shoulder, right, closed (Acute) Tear of biceps tendon (Acute) left Chest pain (Acute) Alcohol abuse (Chronic) Encounter for imaging to screen for metal prior to MRI (Acute) Elevated PSA (Acute) COVID-19 (Acute ~01/15/22) Hyperkalemia (Acute) Arthralgia (Acute) Sleep apnea (Acute 02/07/15) obstructive sleep apnea dx by [facility] December 2014 Memory loss (Acute) Lipoma of arm (Acute) Chronic arthralgias of knees and hips (Acute) Seborrheic keratosis (Acute) Chronic prostatitis (Acute) RUQ pain (Acute) History of total right hip replacement (Acute 04/25/19) Dr. 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 Milton @ [facility] Nasal septoplasty (11/05/14) Dr. Milton @ [facility] EGD - IV Sedation (06/16/16) EGD - IV Sedation (01/24/13) Colonoscopy - MAC (01/20/17) Family History (Updated 01/31/25 @ 12:07 by Michelle Perez) Mother Essential hypertension Depression Father , 78 Essential hypertension Personal history of malignant neoplasm SKIN/LUNG Heart disease Cancer Sister Essential hypertension Heart disease Hyperlipidemia Grandfather Essential hypertension Hyperlipidemia Grandfather Personal history of malignant neoplasm Hyperlipidemia Grandmother Heart disease Grandmother Heart disease Stroke Sister Essential hypertension Hyperlipidemia Son Hypertension Social History (Updated 01/31/25 @ 12:07 by Michelle Perez) Smoking/Tobacco Use Status: Current every day Tobacco Type: smokeless tobacco Tobacco: How many years used: 40 Smokeless tobacco user: chewing tobacco Quit status: has quit before Second Hand Exposure: Yes Smoking risk assessment performed?: Yes Alcohol Intake: current Alcohol Intake frequency: a few times a week Alcohol type: beer Details: Previously 4-5 daily. 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 Pets and animals: Yes Pets and animals: dog(s) Sexually active: Yes Do you think of yourself as: straight/heterosexual Current gender identity: male What is your relationship status?: How often do you talk on the phone with friends or family?: three or more times per week How often do you get together with friends or relatives?: once per week How often do you attend yazdanism or faith services?: decline to answer Do you belong to any clubs or organized social groups?: yes Panel score (0-1 are the most socially isolated patients): 3 What type of physical activity do you participate in: walking Duration: 15-30 minutes/day Frequency: 3-4 times per week Radha/Christian: No preference Special radha needs: No Seatbelt use: always Helmet use: Yes Helmet use: always Drive intox or ride w/intox armor reconnaissance vehicle driver: No Working smoke detector in home: Yes Carbon monox detector in home: Yes Firearms in home: Yes Firearms unloaded and locked: Yes Do you feel safe at home: Yes Do you feel safe in your relationship?: Yes Would you like helpful sources: No Additional Social history: [employer] PAW[employer] Have you Been Recently Intoxicated or Drunk Within the Last 30 days?: Yes Have you Ever Experienced Previous Episodes of Alcohol Withdrawal?: No Have you ever Experienced Withdrawal Seizures?: No Have you ever Experienced Delirium Tremens(DT)s?: No Have you ever undergone Alcohol Rehabilitation Treatment (i.e, inpt ot outpatient treatment programs)?: No Have you ever Experienced Blackouts?: No Have you ever Combined Alcohol with other Downers within the last 90 days?: No Have you ever Combined Alcohol with any other Substance of Abuse during the last 90 days?: No Positive Blood Alcohol level on Presentation? [PCS.BAL]: No Evidence of Increased Autonomic Activity (i.e. HR>120, tremor, sweating, agitation, nausea)?: No Result: 1
== END 2025-03-19 11:20 | disposition home or self-care (01) ==
PROVIDERS: Emergency Provider Physician Assistant; PCP Family Medicine
DX: R30.0 Dysuria (principal)
CPT/HCPCS: 99283 ×2; 81003; 87086

== ENCOUNTER 2025-04-17 16:01 | Outpatient (CLI) | payer BC, SELFPAY ==
--- NOTE | 2025-04-17 15:45 | DI.RAD_ITS ---
Exam(s) XR SHOULDER RT COMPLETE 2+V EXAM: XR SHOULDER RT COMPLETE 2+V CLINICAL HISTORY: pain, ROTATOR CUFF ARTHROPATHY OR R SHOULDER, M12.811. TECHNIQUE: 2D digital imaging was performed. COMPARISON: CR XR SHOULDER RT COMPLETE 2+V from 01/24/2025 FINDINGS: Four views There is stable position alignment of the components of the reverse prosthesis of the right shoulder. There is no evidence of fracture or loosening and no radiographic evidence of osteomyelitis. IMPRESSION: Stable satisfactory appearance DATA REPOSITORY: RADIATION DOSE DELIVERED:
== END 2025-04-17 16:21 ==
LOC: DI 16:18
PROVIDERS: PCP Family Medicine; Visit Provider Student in an Organized Health Care Education/Training Program
DX: M12.811 Other specific arthropathies, not elsewhere classified, right shoulder (principal)
CPT/HCPCS: 73030

== ENCOUNTER 2025-05-14 12:50 | Outpatient (CLI) | payer BC, SELFPAY ==
[2025-05-14 14:25] LABS: Abs Immature Grans 0.01 10^3/uL (0.0-0.06); HCT 47.4 % (40.0-50.0); HGB 15.8 g/dL (13.5-17.5); Immature Grans % 0.2 %; MCH 30.4 pg (27.0-33.0); MCHC 33.3 % (32.0-36.0); MCV 91 fL (80-95); MPV 9.7 fL (8.0-11.0); Platelet Count 290 10^3/uL (130-400); RBC 5.20 10^6/uL (4.36-5.78); RDW 13.2 % (11.8-14.1); RDW-SD 44.6 fL; WBC 5.97 10^3/uL (4.4-10.8)
[2025-05-14 14:27] LABS: ESR 6 mm/hr (0-20)
[2025-05-14 15:29] LABS: C-Reactive Protein 1.19 mg/dL (<or=0.5)
== END 2025-05-14 12:51 | disposition home or self-care (01) ==
LOC: LBO 12:50
PROVIDERS: Student in an Organized Health Care Education/Training Program; PCP Family Medicine; Visit Provider Student in an Organized Health Care Education/Training Program
DX: M12.811 Other specific arthropathies, not elsewhere classified, right shoulder (principal)
CPT/HCPCS: 36415; 85652; 85025; 86140

== ENCOUNTER 2025-06-05 11:13 | Outpatient (CLI) | payer BC, SELFPAY ==
--- NOTE | 2025-06-05 10:44 | DI.RAD_ITS ---
Exam(s) XR SHOULDER RT COMPLETE 2+V EXAM: XR SHOULDER RT COMPLETE 2+V CLINICAL HISTORY: F/U RIGHT RTSA. TECHNIQUE: 2D digital imaging was performed. Two images were obtained. Grashey and Y views were obtained. COMPARISON: CR XR SHOULDER RT COMPLETE 2+V from 04/17/2025 FINDINGS: BONES: There are stable post operative changes of a right reverse total shoulder arthroplasty present. No fracture or dislocation. JOINTS: The orthopedic hardware is in good position. No evidence of hardware loosening. SOFT TISSUE: Normal. IMPRESSION: Stable right reverse total shoulder arthroplasty. DATA REPOSITORY: RADIATION DOSE DELIVERED:
== END 2025-06-05 11:14 | disposition home or self-care (01) ==
LOC: DIORS 11:13
PROVIDERS: PCP Family Medicine; Visit Provider Student in an Organized Health Care Education/Training Program
DX: M12.811 Other specific arthropathies, not elsewhere classified, right shoulder (principal); Z47.1 Aftercare following joint replacement surgery; Z96.611 Presence of right artificial shoulder joint
CPT/HCPCS: 73030

== ENCOUNTER 2025-06-22 12:19 | Outpatient (CLI) | payer BC, SELFPAY ==
[2025-06-25 09:59] LABS: PSA, Diagnostic 5.4 ng/mL (<=3.5)
== END 2025-06-22 12:20 | disposition home or self-care (01) ==
LOC: LBO 12:19
PROVIDERS: PCP Family Medicine; Visit Provider Urology
DX: R97.20 Elevated prostate specific antigen [PSA] (principal)
CPT/HCPCS: 36415; 84153